=== PATIENT | female | born 1975 | race Caucasian/White ===

== ENCOUNTER 2017-09-06 10:40 | Emergency (ER) | payer MEDICARE ==
[~2017-09-06] VITALS: Ht 149.9 cm; Wt 75.0 kg
[2017-09-06 10:42] VITALS: BP 143/70; PULSE 113; RESP 18; TEMP 100; O2SAT 98
[2017-09-06] MEDS ORDERED: SODIUM CHLOR 0.9% 1000 ML INJ 1,000 ML IV ONE ×2 (11:15→13:15)
[2017-09-06] MEDS ORDERED: ACETAMINOPHEN 325 MG TAB PO ONE (11:15)
[2017-09-06] MEDS ORDERED: TOPI25TA7 PO (11:20)
[2017-09-06] MEDS ORDERED: ALLO300T2 PO (11:20)
[2017-09-06] MEDS ORDERED: ROSU1TAB8 PO (11:20)
[2017-09-06] MEDS ORDERED: COLC1TAB15 PO (11:20)
[2017-09-06] MEDS ORDERED: METO50TA PO (11:20)
[2017-09-06] MEDS ORDERED: NORT10CA PO (11:20)
[2017-09-06] MEDS ORDERED: FENO145T2 PO (11:20)
[2017-09-06] MEDS ORDERED: DIGO0.12 PO (11:20)
[2017-09-06] MEDS ORDERED: RANI150T PO (11:20)
[2017-09-06] MEDS ORDERED: SERT-129 PO (11:20)
[2017-09-06] MEDS ORDERED: CANA300T PO (11:20)
[2017-09-06] MEDS ORDERED: ZOFR4TAB PO (11:20)
[2017-09-06] MEDS ORDERED: NOVOLOGP2 SQ (11:20)
[2017-09-06] MEDS ORDERED: DEXI60CA3 PO (11:20)
[2017-09-06] MEDS ORDERED: SUCR1TAB PO (11:20)
[2017-09-06] MEDS ORDERED: PROM12.54 PO (11:20)
[2017-09-06] MEDS ORDERED: LOSA25TA PO (11:20)
[2017-09-06] MEDS ORDERED: METO100T PO (11:20)
[2017-09-06 11:23] VITALS: O2SAT 97
--- NOTE | 2017-09-06 11:23 | PD ---
HPI Chief Complaint: Fever Time Seen by Provider: 11:02 Travel History International Travel<30 days: No Contact w/Intl Traveler<30days: No Traveled to known affect area: No History of Present Illness HPI 42 year old female presents to the emergency department for evaluation of fever that started on Friday, 3 days ago. Patient reports significant medical history with diabetes with insulin pump, pacemaker/AICD, polycystic kidney disease, frequent UTIs, CVA, hypertension, GERD, hyperlipidemia, seizures. Patient states that her fevers have been up to 103. She last took Tylenol at 7 AM this morning. Patient reports right lower back pain. She also reports shortness of breath and worsening pain with taking a deep breath. She states that she had an esophageal dilation with endoscopy done on Friday before fever started. She denies any chest pain. She denies any abdominal pain. She reports nausea, but no vomiting. She states she did have diarrhea, but this is resolved. She had 1 episode yesterday. No blood in her stool. Patient denies any sore throat or ear pain. No cough or congestion. Severity is moderate. No exacerbating or alleviating factors. No radiation of pain. Pain is achy/ sharp. PFSH Past Medical History ?: Not Social History Alcohol Use: Yes Tobacco Use: Yes Substance Use: No Allergies-Medications (Allergen,Severity, Reaction): Coded Allergies: insulin glargine (Verified Allergy, Severe, 09/06/17) lisinopril (Verified Allergy, Severe, 09/06/17) naproxen (Verified Allergy, Severe, 09/06/17) Reported Meds & Prescriptions Reported Meds & Active Scripts Active Reported Zofran (Ondansetron HCl) 4 Mg Tab 4 Mg PO Q12HR PRN Losartan (Losartan Potassium) 25 Mg Tab 25 Mg PO DAILY Topiramate 25 Mg Tab 25 Mg PO DAILY Sertraline (Sertraline HCl) 100 Mg Tab 150 Mg PO DAILY Rosuvastatin (Rosuvastatin Calcium) 20 Mg Tab 20 Mg PO MWF Ranitidine (Ranitidine HCl) 150 Mg Tab 150 Mg PO BID Promethazine (Promethazine HCl) 12.5 Mg Tab 25 Mg PO Q4H PRN Nortriptyline (Nortriptyline HCl) 10 Mg Cap 10 Mg PO HS Metoprolol Tartrate 100 Mg Tab 100 Mg PO DAILY Metoprolol Tartrate 50 Mg Tab 50 Mg PO DAILY Invokana (Canagliflozin) 300 Mg Tab 300 Mg PO DAILY Take before 1st meal of day. Dexilant (Dexlansoprazole) 60 Mg bp 60 Mg PO Fenofibrate 145 Mg Tab 145 Mg PO DAILY Colchicine 0.6 Mg Tab 0.6 Mg PO PRN Digoxin 0.125 Mg Tab 0.125 Mg PO DAILY Sucralfate 1 Gram Tab 1 Gm PO QID on empty stomach Allopurinol 300 Mg Tab 300 Mg PO DAILY Novolog Inj (Insulin Aspart) 1,000 Unit/10 Ml Vial 0 SQ DIRECTED Sliding Scale as directed. Review of Systems Except as stated in HPI: all other systems reviewed are Neg Physical Exam Narrative GENERAL: Well-nourished, well-developed female patient, ambulatory. Temp of 100.0. SKIN: Focused skin assessment warm/dry. HEAD: Normocephalic. Atraumatic. ENT: Mucosa pink and moist. No erythema or exudates. No uvular edema. No uvular , palatal, or tonsillar deviation. Airway patent. Nasal turbinates appear normal without nasal blood, purulent drainage or septal hematoma. Bilateral tympanic membranes are clear without erythema or perforation. EYES: No scleral icterus. No injection or drainage. NECK: Supple, trachea midline. No JVD or lymphadenopathy. CARDIOVASCULAR: Regular rhythm without murmurs, gallops, or rubs. Patient is slightly tachycardic with HR 113. RESPIRATORY: Breath sounds equal bilaterally. No accessory muscle use. Lungs sounds are clear to auscultation. GASTROINTESTINAL: Abdomen soft, non-tender, nondistended. MUSCULOSKELETAL: No cyanosis, or edema. BACK: Nontender without obvious deformity. No CVA tenderness. Patient has tenderness over right lower back. Data Data Last Documented VS Vital Signs Date Time Temp Pulse Resp B/P (MAP) Pulse Ox O2 Delivery O2 Flow Rate FiO2 09/06/17 11:28 97 Nasal Cannula 2.00 09/06/17 11:23 09/06/17 10:42 100.0 113 18 Orders Orders Electrocardiogram (09/06/17 ) Sepsis Workup Initiated (09/06/17 ) Electrocardiogram (09/06/17 11:12) Complete Blood Count With Diff (09/06/17 11:12) Comprehensive Metabolic Panel (09/06/17 11:12) Prothrombin Time / Inr (Pt) (09/06/17 11:12) Act Partial Throm Time (Ptt) (09/06/17 11:12) Lactic Acid Sepsis Protocol (09/06/17 11:12) Magnesium (Mg) (09/06/17 11:12) Lipase (09/06/17 11:12) Ckmb (Isoenzyme) Profile (09/06/17 11:12) Troponin I (09/06/17 11:12) Urinalysis - C+S If Indicated (09/06/17 11:12) Influenzae A/B Antigen (09/06/17 11:12) Blood Culture (09/06/17 11:12) Chest, Single Ap (09/06/17 11:12) Blood Glucose (09/06/17 11:12) Ecg Monitoring (09/06/17 11:12) Iv Access Insert/Monitor (09/06/17 11:12) Oximetry (09/06/17 11:12) Oxygen Administration (09/06/17 11:12) Ct Abd/Pel W Iv Contrast(Rout) (09/06/17 11:12) Ct Thorax/ Chest W Iv Contrast (09/06/17 ) Ed Urine Pregnancytest Poc (09/06/17 11:12) Sodium Chlor 0.9% 1000 Ml Inj (Ns 1000 M (09/06/17 11:15) Acetaminophen (Tylenol) (09/06/17 11:15) Morphine Inj (Morphine Inj) (09/06/17 11:30) Ondansetron Inj (Zofran Inj) (09/06/17 11:30) Urine Culture (09/06/17 11:38) Iohexol 350 Inj (Omnipaque 350 Inj) (09/06/17 13:02) Ceftriaxone Inj (Rocephin Inj) (09/06/17 13:15) Sodium Chlor 0.9% 1000 Ml Inj (Ns 1000 M (09/06/17 13:15) Potassium Chloride (Kcl) (09/06/17 13:30) Labs Laboratory Tests Test 09/06/17 11:30 09/06/17 11:38 Lactic Acid Level 1.5 mmol/L White Blood Count 14.8 TH/MM3 Red Blood Count 4.03 MIL/MM3 Hemoglobin 12.1 GM/DL Hematocrit 35.2 % Mean Corpuscular Volume 87.5 FL Mean Corpuscular Hemoglobin 30.0 PG Mean Corpuscular Hemoglobin Concent 34.3 % Red Cell Distribution Width 12.8 % Platelet Count 168 TH/MM3 Mean Platelet Volume 7.4 FL Neutrophils (%) (Auto) 77.8 % Lymphocytes (%) (Auto) 10.8 % Monocytes (%) (Auto) 10.9 % Eosinophils (%) (Auto) 0.3 % Basophils (%) (Auto) 0.2 % Neutrophils # (Auto) 11.5 TH/MM3 Lymphocytes # (Auto) 1.6 TH/MM3 Monocytes # (Auto) 1.6 TH/MM3 Eosinophils # (Auto) 0.0 TH/MM3 Basophils # (Auto) 0.0 TH/MM3 CBC Comment DIFF FINAL Differential Comment Prothrombin Time 11.1 SEC Prothromb Time International Ratio 1.0 RATIO Activated Partial Thromboplast Time 34.7 SEC Urine Color YELLOW Urine Turbidity HAZY Urine pH 6.0 Urine Specific [place] 1.018 Urine Protein 30 mg/dL Urine Glucose (UA) 1000 mg/dL Urine Ketones TRACE mg/dL Urine Occult Blood TRACE Urine Nitrite NEG Urine Bilirubin NEG Urine Urobilinogen LESS THAN 2.0 MG/DL Urine Leukocyte Esterase MOD Urine RBC 0-3 /hpf Urine WBC 100-200 /hpf Urine WBC Clumps MOD Urine Squamous Epithelial Cells 0-5 /hpf Urine Transitional Epithelial Cells 0-5 /hpf Urine Bacteria MANY /hpf Microscopic Urinalysis Comment CULTURE INDICATED Blood Urea Nitrogen 20 MG/DL Creatinine 0.93 MG/DL Random Glucose 148 MG/DL Total Protein 8.8 GM/DL Albumin 3.5 GM/DL Calcium Level 9.2 MG/DL Magnesium Level 2.1 MG/DL Alkaline Phosphatase 69 U/L Aspartate Amino Transf (AST/SGOT) 16 U/L Alanine Aminotransferase (ALT/SGPT) 29 U/L Total Bilirubin 0.7 MG/DL Sodium Level 130 MEQ/L Potassium Level 3.1 MEQ/L Chloride Level 96 MEQ/L Carbon Dioxide Level 21.6 MEQ/L Anion Gap 12 MEQ/L Estimat Glomerular Filtration Rate 66 ML/MIN Total Creatine Kinase 27 U/L Troponin I LESS THAN 0.02 NG/ML Lipase 73 U/L MDM Medical Decision Making Medical Screen Exam Complete: Yes Emergency Medical Condition: Yes Medical Record Reviewed: Yes Interpretation(s) Last Impressions Chest X-Ray 09/06/17 1112 Signed Impressions: Service Date/Time: Wednesday, September 06, 2017 11:47 - CONCLUSION: No acute cardiopulmonary disease identified. Jake Bashir MD Abdomen/Pelvis CT 09/06/17 1112 Signed Impressions: Service Date/Time: Wednesday, September 06, 2017 12:22 - CONCLUSION: 1. Hepatosplenomegaly. 2. Hepatic steatosis. 3. Polycystic kidneys with perinephric stranding of the right kidney. This may be related to a ruptured cyst, or pyelonephritis. No obstructing stones or hydronephrosis present. 4. Atherosclerosis. 5. Small hiatal hernia. 6. Bilateral ovarian cysts. 7. Trace pneumobilia which may be related to recent endoscopy. Kolton Prajapati MD Chest CT 09/06/17 0000 Signed Impressions: Service Date/Time: Wednesday, September 06, 2017 12:24 - CONCLUSION: 1. Polycystic kidneys. 2. A small amount of pneumobilia is identified. 3. Mild prominence of the chay retrieve in this patient who is status post cholecystectomy. 4. The lungs are clear. 5. Splenomegaly and hepatic steatosis. Kolton Prajapati MD Differential Diagnosis Influenza versus viral syndrome versus UTI versus pyelonephritis versus esophageal perforation Narrative Course 42-year-old female presents to the emergency department for evaluation of fever since Friday with right lower back pain or shortness of breath. She does report esophageal dilation an endoscopy done on Friday. EKG shows sinus tachycardia, heart rate 109. CBC, CMP, lipase, magnesium, CK, troponin, Lactic acid, PTT, PT/INR, UA, blood cultures 2 are ordered and pending. Patient is given normal saline 1 L IV bolus, Tylenol 650 mg by mouth. Chest x-ray is ordered and pending. CT abdomen/pelvis and CT of thorax/chest with IV contrast are ordered and pending. CBC shows leukocytosis of 14.8. CMP shows slight hyponatremia of 130, hypokalemia of 3.1, glucose 148. Lipase is 73. Magnesium is 2.1. CK is 27. Troponin is less than 0.02. Lactic acid is 1.5. Coags show no acute abnormality. UA shows moderate leukocyte esterase, 100-200 WBC, moderate WBC clumps. UPT is negative. Chest x-ray shows no acute disease. CT chest shows polycystic kidneys; A small amount of pneumobilia is identified; Mild prominence of the chay retrieve in this patient who is status post cholecystectomy; The lungs are clear; Splenomegaly and hepatic steatosis. CT abdomen/pelvis Hepatosplenomegaly; Hepatic steatosis; Polycystic kidneys with perinephric stranding of the right kidney. This may be related to a ruptured cyst, or pyelonephritis. No obstructing stones or hydronephrosis present; Atherosclerosis; Small hiatal hernia; Bilateral ovarian cysts; Trace pneumobilia which may be related to recent endoscopy. Patient is given Rocephin 1 g IV, second liter normal saline IV bolus. Patient' s heart rate is now mid-nineties. I discussed admission versus antibiotics for home. The patient states that she would like to try to go home with antibiotics. She does not want to be admitted at this time. I agree that this is reasonable. The patient will be discharged with a prescription for short- term Lortab for pain, ciprofloxacin. She is to return here immediately for any worsening symptoms. She verbalizes agreement and understanding. The patient was discharged in stable condition with instructions, including return instructions and follow up instructions. Diagnosis Primary Impression: Pyelonephritis Referrals: Primary Care Physician 2 days Patient Instructions: General Instructions, Urinary Tract Infection in Women ( ED) Departure Forms: Tests/Procedures, Work Release Enter return to work date: Sep 09, 2017 Additional Instructions: Take antibiotic as directed until gone. Take Lortab as directed as needed for pain. Caution this can make you drowsy so do not drive after taking. Follow-up with your primary care physician. Return to the emergency department for any acute worsening of symptoms. Med/Other Pt SpecificInfo: Prescription(s) given Scripts Hydrocodone-Acetaminophen ([place]) 5 Mg-325 Mg Tab 1 TAB PO Q6H Y for PAIN, #12 TAB 0 Refills Prov: Sammie Shah 09/06/17 Ciprofloxacin (Cipro) 500 Mg Tab 500 MG PO BID for Infection for 14 Days, #28 TAB 0 Refills Prov: Sammie Shah 09/06/17 Disposition: 01 DISCHARGE HOME Condition: Stable Sammie Shah Sep 06, 2017 11:23
[2017-09-06] MEDS ORDERED: ONDANSETRON HCL 4 MG/2 ML VIAL IV PUSH ONE (11:30)
[2017-09-06] MEDS ORDERED: MORPHINE SULFATE 4 MG/ML INJ IV PUSH ONE (11:30)
[2017-09-06 11:58] LABS: AUTOMATED NEUTROPHIL # 11.5 TH/MM3 (1.8-7.7); BASOPHIL % 0.2 % (0.0-2.0); EOSINOPHIL % 0.3 % (0.0-4.0); HEMATOCRIT 35.2 % (35.0-46.0); HEMO FLAGS DIFF FINAL; LYMPH % 10.8 % (9.0-44.0); LYMPHOCYTE # 1.6 TH/MM3 (1.0-4.8); MEAN CELL VOLUME 87.5 FL (80.0-100.0); MEAN CORPUSCULAR HGB CONC 34.3 % (32.0-36.0); MONO % 10.9 % (0.0-8.0); NEUT % 77.8 % (16.0-70.0); PLATELET COUNT 168 TH/MM3 (150-450); RED BLOOD COUNT 4.03 MIL/MM3 (4.00-5.30); RED CELL DISTRIBUTION WIDTH 12.8 % (11.6-17.2); WHITE BLOOD COUNT 14.8 TH/MM3 (4.0-11.0)
[2017-09-06 12:06] LABS: APTT (PATIENT) 34.7 SEC (24.3-30.1); BLOOD, URINE TRACE (NEG); GLUCOSE,URINE 1000 mg/dL (NEG); KETONE, URINE TRACE mg/dL (NEG); NITRITE,URINE NEG (NEG); PROTHROMBIN TIME - PATIENT 11.1 SEC (9.8-11.6); URINE COLOR YELLOW (YELLW/STRAW)
[2017-09-06 12:16] LABS: BACTERIA, URINE MANY /hpf; RBC, URINE 0-3 /hpf (0-3); SQUAMOUS EPITHELIAL CELL URINE 0-5 /hpf (0-5); TRANSITIONAL EPI CELLS, URINE 0-5 /hpf; WBC, URINE 100-200 /hpf (0-5)
--- NOTE | 2017-09-06 12:16 | RADRPT ---
EXAM DATE/TIME: 09/06/2017 11:47 [facility] COMPARISON: No previous studies available for comparison. INDICATIONS : Pain in lower back and right side with fever and shortness of breath. MEDICAL HISTORY : Congestive heart failure. Cardiomyopathy. Atrial fibrillation. SURGICAL HISTORY : Pacemaker. Cardiac catheterization. ENCOUNTER: Initial ACUITY: 1 day PAIN SCORE: 6/10 LOCATION: Right lower chest FINDINGS: Single AP view of the chest. AICD in place. The lungs are clear. Cardiomediastinal silhouette within normal limits. No evidence of pleural effusion or pneumothorax. CONCLUSION: No acute cardiopulmonary disease identified. Jake Bashir MD on September 06, 2017 at 12:14 Board Certified Radiologist. This report was verified electronically.
[2017-09-06 12:18] LABS: COMMENT (UR) CULTURE INDICATED; CULTURE IF INDICATED CULTURE INDICATED
[2017-09-06 12:19] LABS: ALT (GPT) 29 U/L (10-53); ANION GAP 12 MEQ/L (5-15); AST (GOT) 16 U/L (15-37); BICARBONATE 21.6 MEQ/L (21.0-32.0); BLOOD UREA NITROGEN 20 MG/DL (7-18); CHLORIDE 96 MEQ/L (98-107); GLOMERULAR FILTRATION RATE 66 ML/MIN (>89); MAGNESIUM 2.1 MG/DL (1.5-2.5); POTASSIUM 3.1 MEQ/L (3.5-5.1); SODIUM (NA) 130 MEQ/L (136-145)
[2017-09-06 12:26] LABS: ALKALINE PHOSPHATASE 69 U/L (45-117); TOTAL BILIRUBIN ADULT 0.7 MG/DL (0.2-1.0)
[2017-09-06 12:39] LABS: CREATINE KINASE 27 U/L (26-192)
[2017-09-06] MEDS ORDERED: IOHEXOL 350 MG/ML 10 ML VIAL (for RAD DIAG) IVCONTRAST ONE (13:02)
--- NOTE | 2017-09-06 13:05 | RADRPT ---
EXAM DATE/TIME: 09/06/2017 12:24 [facility] COMPARISON: CT ABDOMEN & PELVIS W CONTRAST, September 06, 2017, 12:22. INDICATIONS : Chest discomfort and fever. IV CONTRAST: 100 cc Omnipaque 350 (iohexol) IV ; Cumulative dose for multiple exams. RADIATION DOSE: 9.96 CTDIvol (mGy) ; Combined studies - Thorax/Abdomen/Pelvis MEDICAL HISTORY : Cardiovascular disease. SURGICAL HISTORY : None. ENCOUNTER: Initial ACUITY: 1 day PAIN SCALE: 10/10 LOCATION: Bilateral chest TECHNIQUE: Volumetric scanning of the chest was performed. Using automated exposure control and adjustment of t he mA and/or kV according to patient size, radiation dose was kept as low as reasonably achievable to obtain optimal diagnostic quality images. DICOM format image data is available electronically for review and comparison. Follow-up recommendations for detected pulmonary nodules are based at a minimum on nodule size and pa tient risk factors according to Fleischner Society Guidelines. FINDINGS: There are innumerable cysts within the visualized bilateral kidneys. There is pneumobilia identified in the intrahepatic biliary tree in this patient is status post cholecystectomy. The common bile duct is prominent up to 13 mm. Splenomegaly is noted up to 16 cm in AP dimension. Mild hepatic steatosis. There is no adenopathy. Multiple bilateral fire or nodules are noted. Osseous structures are intact. The lungs are clear. CONCLUSION: 1. Polycystic kidneys. 2. A small amount of pneumobilia is identified. 3. Mild prominence of the chay retrieve in this patient who is status post cholecystectomy. 4. The lungs are clear. 5. Splenomegaly and hepatic steatosis. Kolton Prajapati MD on September 06, 2017 at 13:02 Board Certified Radiologist. This report was verified electronically.
--- NOTE | 2017-09-06 13:09 | RADRPT ---
EXAM DATE/TIME: 09/06/2017 12:22 [facility] COMPARISON: CT THORAX W CONTRAST, September 06, 2017, 12:24. INDICATIONS : Right flank pain. IV CONTRAST: 100 cc Omnipaque 350 (iohexol) IV ; Cumulative dose for multiple exams. ORAL CONTRAST: No oral contrast ingested. RADIATION DOSE: 9.96 CTDIvol (mGy) ; Combined studies - Thorax/Abdomen/Pelvis MEDICAL HISTORY : Cardiovascular disease. SURGICAL HISTORY : None. ENCOUNTER: Initial ACUITY: 1 day PAIN SCALE: 10/10 LOCATION: Bilateral abdomen. TECHNIQUE: Volumetric scanning of the abdomen and pelvis was performed. Using automated exposure control and ad justment of the mA and/or kV according to patient size, radiation dose was kept as low as reasonably achievable to obtain optimal diagnostic quality images. DICOM format image data is available electro nically for review and comparison. FINDINGS: No pleural or pericardial effusions are seen. There is a small calcification at the dome of the liver on image 8 measuring 7.5 mm. Hepatic steatosis is identified and hepatomegaly as well as splenomegal y at 16 cm in AP dimension. There is a small amount of pneumobilia in the intrahepatic biliary tree i n this patient with history of recent endoscopy. Common bile duct measures up to 14 mm in AP dimensio n in this patient who is status post cholecystectomy. There is no pancreatic ductal dilatation. There is a small hiatal hernia. Innumerable bilateral renal cysts are identified. There is cortical thinni ng. The largest cyst on the left is at the middle pole measuring 4.1 cm. The largest on the right is at the midpole anteriorly measuring 3.4 cm. Atherosclerotic calcification of the aorta and iliac vess els. The patient is status post hysterectomy. There is a small cyst suspected at the left ovary measu ring 2.4 cm. Right adnexal cyst measuring 6.1 cm. There is no evidence of bowel obstruction or free f luid. The appendix is normal. There is no adenopathy or aneurysm. The osseous structures are intact. There is mild perinephritic stranding of the right kidney. This is best seen on axial image 32. No ob structing stones are seen. No hydronephrosis. Lung bases are clear. The liver is enlarged up to 26 cm . CONCLUSION: 1. Hepatosplenomegaly. 2. Hepatic steatosis. 3. Polycystic kidneys with perinephric stranding of the right kidney. This may be related to a ruptur ed cyst, or pyelonephritis. No obstructing stones or hydronephrosis present. 4. Atherosclerosis. 5. Small hiatal hernia. 6. Bilateral ovarian cysts. 7. Trace pneumobilia which may be related to recent endoscopy. Kolton Prajapati MD on September 06, 2017 at 13:04 Board Certified Radiologist. This report was verified electronically.
[2017-09-06] MEDS ORDERED: cefTRIAXone INJ 1,000 MG in SODIUM CHLORIDE 0.9% INJ 100 ML IV ONE (13:15)
[2017-09-06] MEDS ORDERED: CIPR-9 PO (13:27)
[2017-09-06] MEDS ORDERED: NORC5TAB PO ×2 (13:27→13:29)
[2017-09-06] MEDS ORDERED: POTASSIUM CHLORIDE 20 MEQ CONTROLLED RELEASE TAB PO ONE (13:30)
[2017-09-06 14:32] VITALS: BP 138/74; PULSE 98; RESP 18; TEMP 99; O2SAT 97
--- NOTE | 2017-09-06 16:10 | EKG ---
Date Performed: 09/06/2017 Time Performed: 11:14:35 PTAGE: 42 years EKG: SINUS TACHYCARDIA POSSIBLE LEFT ATRIAL ENLARGEMENT MODERATE INTRAVENTRICULAR CONDUCTION DEL AY Nonspecific T wave changes ABNORMAL RHYTHM ECG NO PREVIOUS TRACING DOCTOR: Meek Martinez Interpretating Date/Time 09/06/2017 16:09:15
== END 2017-09-06 14:34 | disposition home or self-care (01) ==
LOC: NEPE 10:40
DX: N12 Tubulo-interstitial nephritis, not specified as acute or chronic (principal); B96.20 Unspecified Escherichia coli [E. coli] as the cause of diseases classified elsewhere; R06.02 Shortness of breath; R11.0 Nausea; E87.1 Hypo-osmolality and hyponatremia; E87.6 Hypokalemia; R94.31 Abnormal electrocardiogram [ECG] [EKG]; E11.9 Type 2 diabetes mellitus without complications; I10 Essential (primary) hypertension; E78.5 Hyperlipidemia, unspecified; Z72.0 Tobacco use; Z79.4 Long term (current) use of insulin; Z95.810 Presence of automatic (implantable) cardiac defibrillator; Z87.448 Personal history of other diseases of urinary system; Z86.79 Personal history of other diseases of the circulatory system; Z87.19 Personal history of other diseases of the digestive system; Z86.69 Personal history of other diseases of the nervous system and sense organs
CPT/HCPCS: 71010; 71260; 74177; 80053; 81001; 82550; 83605; 83690; 83735; 84484; 84703; 85025; 85610; 85730; 87040; 87077; 87086; 87186; 87804; 93005; 96361; 96365; 96375; 99285; J0696; J2270; J2405; J7030; Q9967

== ENCOUNTER 2017-09-09 12:48 | Emergency (ER) | payer MEDICARE ==
[~2017-09-09] VITALS: Ht 149.9 cm; Wt 75.5 kg
[~2017-09-09 12:48] MED LIST: ALLO300T2 PO; CANA300T PO; CIPR-9 PO; COLC1TAB15 PO; DEXI60CA3 PO; DIGO0.12 PO; FENO145T2 PO; LOSA25TA PO; METO100T PO; METO50TA PO; NORC5TAB PO; NORT10CA PO; NOVOLOGP2 SQ; PROM12.54 PO; RANI150T PO; ROSU1TAB8 PO; SERT-129 PO; SUCR1TAB PO; TOPI25TA7 PO; ZOFR4TAB PO
[2017-09-09 12:50] VITALS: BP 159/79; PULSE 106; RESP 20; TEMP 99.5; O2SAT 100
--- NOTE | 2017-09-09 13:42 | PD ---
HPI Chief Complaint: Medical Clearance Time Seen by Provider: 13:25 Travel History International Travel<30 days: No Contact w/Intl Traveler<30days: No Traveled to known affect area: No History of Present Illness HPI Is a chronically ill 42-year-old woman who presents to the emergency Department ongoing fevers right sided flank pain, feeling poorly for the past several days. She has extensive medical history including polycystic kidney disease, cardiomyopathy with an AICD, A. fib, diabetes, CVA, hyponatremia, and seizures. She states she's been in the hospital [place] She seemed a couple days ago diagnosed with pyelonephritis based on significant pyuria, as well as CT imaging to suggest pyelonephritis. She should with Cipro. Micro-is sensitive to Cipro however states she is not improving and continues to have fevers up to 103. History Past Medical History Narrative Medical Polycystic kidney disease Card myopathy, status post AICD placement A. fib Diabetes CVA Hyperlipidemia Seizure Tetanus Vaccination: < 5 Years Social History Alcohol Use: Yes Tobacco Use: Yes Allergies-Medications (Allergen,Severity, Reaction): Coded Allergies: insulin glargine (Verified Allergy, Severe, 09/09/17) lisinopril (Verified Allergy, Severe, 09/09/17) naproxen (Verified Allergy, Severe, 09/09/17) Reported Meds & Prescriptions Reported Meds & Active Scripts Active [place] (Hydrocodone-Acetaminophen) 5 Mg-325 Mg Tab 1 Tab PO Q6H PRN Cipro (Ciprofloxacin HCl) 500 Mg Tab 500 Mg PO BID 14 Days Reported Zofran (Ondansetron HCl) 4 Mg Tab 4 Mg PO Q12HR PRN Losartan (Losartan Potassium) 25 Mg Tab 25 Mg PO DAILY Topiramate 25 Mg Tab 25 Mg PO DAILY Sertraline (Sertraline HCl) 100 Mg Tab 150 Mg PO DAILY Rosuvastatin (Rosuvastatin Calcium) 20 Mg Tab 20 Mg PO MWF Ranitidine (Ranitidine HCl) 150 Mg Tab 150 Mg PO BID Promethazine (Promethazine HCl) 12.5 Mg Tab 25 Mg PO Q4H PRN Nortriptyline (Nortriptyline HCl) 10 Mg Cap 10 Mg PO HS Metoprolol Tartrate 100 Mg Tab 100 Mg PO DAILY Metoprolol Tartrate 50 Mg Tab 50 Mg PO DAILY Invokana (Canagliflozin) 300 Mg Tab 300 Mg PO DAILY Take before 1st meal of day. Dexilant (Dexlansoprazole) 60 Mg bp 60 Mg PO Fenofibrate 145 Mg Tab 145 Mg PO DAILY Colchicine 0.6 Mg Tab 0.6 Mg PO PRN Digoxin 0.125 Mg Tab 0.125 Mg PO DAILY Sucralfate 1 Gram Tab 1 Gm PO QID on empty stomach Allopurinol 300 Mg Tab 300 Mg PO DAILY Novolog Inj (Insulin Aspart) 1,000 Unit/10 Ml Vial 0 SQ DIRECTED Sliding Scale as directed. Review of Systems Except as stated in HPI: all other systems reviewed are Neg Physical Exam Narrative GENERAL: Chronically ill-appearing 42-year-old woman, no acute distress. SKIN: Focused skin assessment warm/dry. HEAD: Atraumatic. Normocephalic. EYES: Pupils equal and round. No scleral icterus. No injection or drainage. ENT: No nasal bleeding or discharge. Mucous membranes pink and moist. NECK: Trachea midline. No JVD. CARDIOVASCULAR: Regular rate and rhythm. No murmur appreciated. RESPIRATORY: No accessory muscle use. Clear to auscultation. Breath sounds equal bilaterally. GASTROINTESTINAL: Abdomen is obese and soft. No significant tenderness. Right sided CVA tenderness to percussion is noted. MUSCULOSKELETAL: No obvious deformities. No clubbing. No cyanosis. No edema. NEUROLOGICAL: Awake and alert. No obvious cranial nerve deficits. Motor grossly within normal limits. Normal speech. PSYCHIATRIC: Appropriate mood and affect; insight and judgment normal. Data Data Last Documented VS Vital Signs Date Time Temp Pulse Resp B/P (MAP) Pulse Ox O2 Delivery O2 Flow Rate FiO2 09/09/17 12:50 99.5 106 20 159/79 (105) 100 Room Air Orders Orders Complete Blood Count With Diff (09/09/17 13:38) Comprehensive Metabolic Panel (09/09/17 13:38) Urinalysis - C+S If Indicated (09/09/17 13:38) Iv Access Insert/Monitor (09/09/17 13:38) MDM Medical Decision Making Medical Screen Exam Complete: Yes Emergency Medical Condition: Yes Differential Diagnosis Pyelonephritis, pancreatitis, chronic pain, other Narrative Course Medical decision making Is a 42-year-old woman presents emergent department with appears to be ongoing pollen nephritis symptoms, not improving despite antibiotic therapy. Her culture grew Escherichia coli should be sensitive to Cipro but clinically she does not appear to be improving. She is somewhat somatically preoccupied has a chronic history of multiple medical problems. Nonetheless subjectively she has pyuria and pyelonephritis on CT imaging and does not appear to be improving. We 'll recheck labs, urine, likely admission for IV antibiotics. Clovis Dickinson MD Sep 09, 2017 13:42
--- NOTE | 2017-09-09 14:10 | PD ---
Physical Exam Date Seen by Provider: Sep 09, 2017 Time Seen by Provider: 14:09 Narrative 42-year-old female recently diagnosed with pyelonephritis, and treated with ciprofloxacin on an outpatient basis returned ongoing symptoms and fever. Patient previously seen by Dr. way in the triage, and labs were ordered. Patient may be admitted pending labs for failure of outpatient therapy. Data Data Last Documented VS Vital Signs Date Time Temp Pulse Resp B/P (MAP) Pulse Ox O2 Delivery O2 Flow Rate FiO2 09/09/17 13:44 16 09/09/17 12:50 99.5 106 159/79 (105) 100 Room Air Orders Orders Complete Blood Count With Diff (09/09/17 13:38) Comprehensive Metabolic Panel (09/09/17 13:38) Urinalysis - C+S If Indicated (09/09/17 13:38) Iv Access Insert/Monitor (09/09/17 13:38) Oxycodone-Acetamin 5-325 Mg (Percocet (09/09/17 15:15) Labs Laboratory Tests Test 09/09/17 14:00 White Blood Count 13.2 TH/MM3 Red Blood Count 3.65 MIL/MM3 Hemoglobin 10.9 GM/DL Hematocrit 32.2 % Mean Corpuscular Volume 88.3 FL Mean Corpuscular Hemoglobin 29.8 PG Mean Corpuscular Hemoglobin Concent 33.7 % Red Cell Distribution Width 13.0 % Platelet Count 317 TH/MM3 Mean Platelet Volume 7.2 FL Neutrophils (%) (Auto) 78.0 % Lymphocytes (%) (Auto) 14.6 % Monocytes (%) (Auto) 5.7 % Eosinophils (%) (Auto) 1.1 % Basophils (%) (Auto) 0.6 % Neutrophils # (Auto) 10.3 TH/MM3 Lymphocytes # (Auto) 1.9 TH/MM3 Monocytes # (Auto) 0.8 TH/MM3 Eosinophils # (Auto) 0.1 TH/MM3 Basophils # (Auto) 0.1 TH/MM3 CBC Comment AUTO DIFF Differential Total Cells Counted 100 Neutrophils % (Manual) 71 % Band Neutrophils % 3 % Lymphocytes % 16 % Monocytes % 5 % Eosinophils % 1 % Neutrophils # (Manual) 10.3 TH/MM3 Metamyelocytes 2 % Myelocytes 2 % Differential Comment FINAL DIFF MANUAL Platelet Estimate NORMAL Platelet Morphology Comment NORMAL Red Cell Morphology Comment NORMAL Urine Color YELLOW Urine Turbidity CLEAR Urine pH 6.5 Urine Specific [place] 1.018 Urine Protein NEG mg/dL Urine Glucose (UA) 1000 mg/dL Urine Ketones TRACE mg/dL Urine Occult Blood NEG Urine Nitrite NEG Urine Bilirubin NEG Urine Urobilinogen LESS THAN 2.0 MG/DL Urine Leukocyte Esterase NEG Urine RBC 1 /hpf Urine WBC 2 /hpf Urine Squamous Epithelial Cells 2 /hpf Microscopic Urinalysis Comment CULT NOT INDICATED Blood Urea Nitrogen 16 MG/DL Creatinine 0.65 MG/DL Random Glucose 180 MG/DL Total Protein 8.6 GM/DL Albumin 2.9 GM/DL Calcium Level 9.8 MG/DL Alkaline Phosphatase 95 U/L Aspartate Amino Transf (AST/SGOT) 32 U/L Alanine Aminotransferase (ALT/SGPT) 64 U/L Total Bilirubin 0.3 MG/DL Sodium Level 136 MEQ/L Potassium Level 3.2 MEQ/L Chloride Level 101 MEQ/L Carbon Dioxide Level 24.8 MEQ/L Anion Gap 10 MEQ/L Estimat Glomerular Filtration Rate 99 ML/MIN [facility] Medical Record Reviewed: Yes Supervised Visit with NEGRA: Yes Differential Diagnosis Urinary tract infection. Pyelonephritis. Failure to outpatient therapy. Narrative Course CBC shows an improving leukocytosis. CMP is unremarkable for no acute findings. Urinalysis shows improved UA without obvious signs of ongoing urinary tract infection. Patient discussed with Dr. Dickinson felt the patient was stable for discharge on continued antibiotics and pain meds as previously ordered. Diagnosis Primary Impression: Pyelonephritis Referrals: Primary Care Physician Patient Instructions: General Instructions Additional Instruction: CBC shows an improving leukocytosis. CMP is unremarkable for no acute findings. Urinalysis shows improved UA without obvious signs of ongoing urinary tract infection. Patient discussed with Dr. Dickinson felt the patient was stable for discharge on continued antibiotics and pain meds as previously ordered. Med/Other Pt SpecificInfo: No Change to Meds Disposition: 01 DISCHARGE HOME Condition: Stable Shelton Couch Sep 09, 2017 14:10
[2017-09-09 14:13] LABS: AUTOMATED NEUTROPHIL # 10.3 TH/MM3 (1.8-7.7); BASOPHIL # 0.1 TH/MM3 (0-0.2); BASOPHIL % 0.6 % (0.0-2.0); EOSINOPHIL # 0.1 TH/MM3 (0-0.4); EOSINOPHIL % 1.1 % (0.0-4.0); HEMATOCRIT 32.2 % (35.0-46.0); LYMPH % 14.6 % (9.0-44.0); LYMPHOCYTE # 1.9 TH/MM3 (1.0-4.8); MEAN CELL VOLUME 88.3 FL (80.0-100.0); MEAN CORPUSCULAR HEMOGLOBIN 29.8 PG (27.0-34.0); MEAN CORPUSCULAR HGB CONC 33.7 % (32.0-36.0); MONO % 5.7 % (0.0-8.0); PLATELET COUNT 317 TH/MM3 (150-450); RED BLOOD COUNT 3.65 MIL/MM3 (4.00-5.30); WHITE BLOOD COUNT 13.2 TH/MM3 (4.0-11.0)
[2017-09-09 14:15] LABS: BLOOD, URINE NEG (NEG); GLUCOSE,URINE 1000 mg/dL (NEG); KETONE, URINE TRACE mg/dL (NEG); NITRITE,URINE NEG (NEG); PH, URINE 6.5 (5.0-8.5); SQUAMOUS EPITHELIAL CELL URINE 2 /hpf (0-5); URINE COLOR YELLOW (YELLW/STRAW)
[2017-09-09 14:17] LABS: COMMENT (UR) CULT NOT INDICATED; CULTURE IF INDICATED CULT NOT INDICATED
[2017-09-09 14:18] LABS: HEMO FLAGS AUTO DIFF
[2017-09-09 14:45] LABS: BANDS 3 % (0-6); EOSINOPHILS 1 % (0-4); METAMYELOCYTES 2 % (0-1); MYELOCYTES 2 % (0-0); NEUTROPHIL # MANUAL DIFF 10.3 TH/MM3 (1.8-7.7); PLATELET ESTIMATE SMEAR NORMAL (NORMAL); PLATELET MORPHOLOGY NORMAL (NORMAL); POLYS (SEG NEUTROPHILS) 71 % (16-70); SCAN/DIFF FINAL DIFF MANUAL; WBC DIFF SAMPLE 100
[2017-09-09 14:47] LABS: ALKALINE PHOSPHATASE 95 U/L (45-117); ALT (GPT) 64 U/L (10-53); ANION GAP 10 MEQ/L (5-15); AST (GOT) 32 U/L (15-37); BICARBONATE 24.8 MEQ/L (21.0-32.0); BLOOD UREA NITROGEN 16 MG/DL (7-18); CHLORIDE 101 MEQ/L (98-107); GLOMERULAR FILTRATION RATE 99 ML/MIN (>89); POTASSIUM 3.2 MEQ/L (3.5-5.1); SODIUM (NA) 136 MEQ/L (136-145); TOTAL BILIRUBIN ADULT 0.3 MG/DL (0.2-1.0)
[2017-09-09] MEDS ORDERED: oxyCODONE/ACETAMINOPHEN 5 MG/325 MG TAB PO ONE (15:15)
== END 2017-09-09 16:16 | disposition home or self-care (01) ==
LOC: NEPD 12:48
DX: N12 Tubulo-interstitial nephritis, not specified as acute or chronic (principal); D72.829 Elevated white blood cell count, unspecified; Q61.3 Polycystic kidney, unspecified; I42.9 Cardiomyopathy, unspecified; I48.91 Unspecified atrial fibrillation; E11.9 Type 2 diabetes mellitus without complications; R56.9 Unspecified convulsions; E78.5 Hyperlipidemia, unspecified; Z86.73 Personal history of transient ischemic attack (TIA), and cerebral infarction without residual deficits
CPT/HCPCS: 80053; 81001; 85007; 85027; 99283

== ENCOUNTER 2017-10-05 13:43 | Emergency (ER) | payer MEDICARE ==
[~2017-10-05] VITALS: Ht 149.9 cm; Wt 73.0 kg
[2017-10-05 13:46] VITALS: BP 119/56; PULSE 79; RESP 18; TEMP 98.7; O2SAT 100
--- NOTE | 2017-10-05 15:40 | PD ---
HPI Chief Complaint: Skin Problem Time Seen by Provider: 15:29 Travel History International Travel<30 days: No Contact w/Intl Traveler<30days: No Traveled to known affect area: No History of Present Illness HPI 42-year-old female presents to the emergency department for evaluation of abscess just below her left axilla. Patient states this started 3 days ago. She does have a history of abscesses. Patient denies any fevers or chills. Patient is diabetic with an insulin pump. She states that her/sugar was normal 100s. Patient reports localized pain and tenderness. Pain is aching and sharp , 8/10. No radiation of pain. No associated symptoms. Moderate severity. PFSH Past Medical History Cardiovascular Problems: Yes (2 heart caths) Diabetes: Yes Hypertension: Yes Implanted Vascular Access Dvce: Yes (icd) Respiratory: Yes (2 lt at hs) ?: Not Tubal Ligation: Yes Past Surgical History Cholecystectomy: Yes Hysterectomy: Yes Insulin Pump: Yes Social History Alcohol Use: Yes Tobacco Use: Yes Substance Use: No Allergies-Medications (Allergen,Severity, Reaction): Coded Allergies: insulin glargine (Verified Allergy, Severe, 10/05/17) lisinopril (Verified Allergy, Severe, 10/05/17) naproxen (Verified Allergy, Severe, 10/05/17) Reported Meds & Prescriptions Reported Meds & Active Scripts Active [place] (Hydrocodone-Acetaminophen) 5 Mg-325 Mg Tab 1 Tab PO Q6H PRN Cipro (Ciprofloxacin HCl) 500 Mg Tab 500 Mg PO BID 14 Days Reported Zofran (Ondansetron HCl) 4 Mg Tab 4 Mg PO Q12HR PRN Losartan (Losartan Potassium) 25 Mg Tab 25 Mg PO DAILY Topiramate 25 Mg Tab 25 Mg PO DAILY Sertraline (Sertraline HCl) 100 Mg Tab 150 Mg PO DAILY Rosuvastatin (Rosuvastatin Calcium) 20 Mg Tab 20 Mg PO MWF Ranitidine (Ranitidine HCl) 150 Mg Tab 150 Mg PO BID Promethazine (Promethazine HCl) 12.5 Mg Tab 25 Mg PO Q4H PRN Nortriptyline (Nortriptyline HCl) 10 Mg Cap 10 Mg PO HS Metoprolol Tartrate 100 Mg Tab 100 Mg PO DAILY Metoprolol Tartrate 50 Mg Tab 50 Mg PO DAILY Invokana (Canagliflozin) 300 Mg Tab 300 Mg PO DAILY Take before 1st meal of day. Dexilant (Dexlansoprazole) 60 Mg bp 60 Mg PO Fenofibrate 145 Mg Tab 145 Mg PO DAILY Colchicine 0.6 Mg Tab 0.6 Mg PO PRN Digoxin 0.125 Mg Tab 0.125 Mg PO DAILY Sucralfate 1 Gram Tab 1 Gm PO QID on empty stomach Allopurinol 300 Mg Tab 300 Mg PO DAILY Novolog Inj (Insulin Aspart) 1,000 Unit/10 Ml Vial 0 SQ DIRECTED Sliding Scale as directed. Review of Systems Except as stated in HPI: all other systems reviewed are Neg Physical Exam Narrative GENERAL: Well-nourished, well-developed female patient, ambulatory. Afebrile SKIN: Focused skin assessment warm/dry. Patient has approximately 4 cm abscess with erythema to the area just below left axilla. No current drainage. No lymphangitis. HEAD: Normocephalic. Atraumatic. EYES: No scleral icterus. No injection or drainage. NECK: Supple, trachea midline. No JVD or lymphadenopathy. CARDIOVASCULAR: Regular rate and rhythm without murmurs, gallops, or rubs. RESPIRATORY: Breath sounds equal bilaterally. No accessory muscle use. Lungs sounds are clear to auscultation. GASTROINTESTINAL: Abdomen soft, non-tender, nondistended. MUSCULOSKELETAL: No cyanosis, or edema. BACK: Nontender without obvious deformity. No CVA tenderness. Data Data Last Documented VS Vital Signs Date Time Temp Pulse Resp B/P (MAP) Pulse Ox O2 Delivery O2 Flow Rate FiO2 10/05/17 16:10 18 10/05/17 13:46 98.7 79 119/56 (77) 100 Room Air Orders Orders Blood Glucose (10/05/17 15:36) Wound Culture And Gram Stain (10/05/17 15:36) Acetamin-Hydrocod 325-5 Mg (Stryker 5-325 (10/05/17 15:45) Lidocai-Epi 1%-1:100,000 Inj (Xylocaine- (10/05/17 15:45) Sulfamet-Trimeth Ds 800-160 Mg (Bactrim (10/05/17 16:30) Cephalexin (Keflex) (10/05/17 16:30) MDM Medical Decision Making Medical Screen Exam Complete: Yes Emergency Medical Condition: Yes Medical Record Reviewed: Yes Differential Diagnosis Abscess versus cellulitis versus cyst Narrative Course 42-year-old female presents to the emergency department for evaluation of abscess just below her left axilla that started 3 days ago. Patient gives verbal consent for incision and drainage. Blood glucose is 162. Incision and drainage is completed. Patient is given first dose of Bactrim and Keflex in the emergency department. She will be discharged with a prescription for Bactrim, Keflex, [place]ker. She has appointment with her primary care physician on Friday. I instructed her primary care physician recheck the abscess. She is return here for any acute worsening of symptoms. She verbalizes agreement and understanding. The patient was discharged in stable condition with instructions, including return instructions and follow up instructions. Procedures Procedure Narrative INCISION AND DRAINAGE OF ABSCESS: The area was prepped and was sterilely draped. A subcutaneous wheal of 1% Xylocaine with epinephrine with a total number 8 mL was used to anesthetize the area. The area was properly anesthetized. A number 11 scalpel was used to make a 1 -cm incision across the area of the abscess. Cultures were obtained. The abscess was drained an irrigated with normal saline. Quarter inch iodoform packing was placed in the wound. Sterile dressing applied. Patient advised to have packing removed in two days. Diagnosis Primary Impression: Abscess Referrals: Primary Care Physician 2 days Patient Instructions: Abscess (ED), Abscess Incision and Drainage (GEN), General Instructions, Narcotic given in the ED Additional Instructions: Take antibiotics as directed until gone. Take Stryker as directed as needed for pain. Caution do not drive after taking this. Clean twice daily with soap and water. Follow-up with your primary care physician as scheduled in 2 days for recheck, packing removal. Return to the emergency department for any acute worsening of symptoms. Med/Other Pt SpecificInfo: Prescription(s) given Scripts Hydrocodone-Acetaminophen (Stryker) 5 Mg-325 Mg Tab 1 TAB PO Q6H Y for PAIN, #16 TAB 0 Refills Prov: Sammie Shah 10/05/17 Cephalexin (Keflex) 500 Mg Capsule 500 MG PO Q6H for Infection for 10 Days, #40 CAP 0 Refills Prov: Sammie Shah 10/05/17 Sulfamethoxazole-Trimethoprim (Bactrim DS) 800-160 Mg Tab 1 TAB PO BID for Infection, #20 TAB 0 Refills Prov: Sammie Shah 10/05/17 Disposition: 01 DISCHARGE HOME Condition: Stable Sammie Shah Oct 05, 2017 15:40
[2017-10-05] MEDS ORDERED: ACETAMINOPHEN/HYDROcodone 325 MG/5 MG TAB PO ONE (15:45)
[2017-10-05] MEDS ORDERED: LIDOCAINE 1%/EPINEPHrine 1:100,000 SOLN 20 ML VIAL INFIL ONE (15:45)
[2017-10-05] MEDS ORDERED: CEPH-460 PO (16:28)
[2017-10-05] MEDS ORDERED: NORC5TAB PO (16:28)
[2017-10-05] MEDS ORDERED: BACT800T5 PO (16:28)
[2017-10-05] MEDS ORDERED: CEPHALEXIN MONOHYDRATE 500 MG CAP PO ONE (16:30)
[2017-10-05] MEDS ORDERED: SULFAMETHOXAZOLE-TRIMETHOPRIM DS 800-160 MG TAB PO ONE (16:30)
== END 2017-10-05 16:46 | disposition home or self-care (01) ==
LOC: NEPC 13:43
DX: L02.412 Cutaneous abscess of left axilla (principal); E11.9 Type 2 diabetes mellitus without complications; I10 Essential (primary) hypertension; Z72.0 Tobacco use; Z79.899 Other long term (current) drug therapy; Z79.4 Long term (current) use of insulin; Z88.8 Allergy status to other drugs, medicaments and biological substances
CPT/HCPCS: 10061; 86403; 87070; 87186; 87205

== ENCOUNTER 2017-10-07 13:31 | Emergency (ER) | payer MEDICARE ==
[~2017-10-07 13:31] MED LIST changes: +BACT800T5 PO; +CEPH-460 PO
[2017-10-07 13:33] VITALS: BP 144/72; PULSE 72; RESP 16; TEMP 98.4; O2SAT 96
--- NOTE | 2017-10-07 13:58 | PD ---
HPI Chief Complaint: Skin Problem Time Seen by Provider: 13:49 Travel History International Travel<30 days: No Contact w/Intl Traveler<30days: No Traveled to known affect area: No History of Present Illness HPI 42-year-old female here requesting packing removal to breast abscess. She reports the area was incised and drained 2 days ago. She denies fever or chills. She denies increasing pain. She denies any medical complaint. She reports she went to her primary doctor this morning but refused to have the packing removal without anesthetic first. She then came here for packing removal. While in the waiting room she was notified that she had home health care and wound care coming out to her house starting tomorrow to care for the abscess. PFSH Past Medical History Cardiovascular Problems: Yes (CHF; AICD; HTN) Cerebrovascular Accident: Yes Diabetes: Yes Patient Takes Glucophage: Yes Hypertension: Yes Implanted Vascular Access Dvce: Yes (icd) Respiratory: Yes (2 lt at hs) ?: Not : 2 Para: 2 Miscarriage: 0 : 0 Tubal Ligation: Yes Past Surgical History Cholecystectomy: Yes Hysterectomy: Yes (PARTIAL) Insulin Pump: Yes Social History Alcohol Use: No Tobacco Use: No Substance Use: No Allergies-Medications (Allergen,Severity, Reaction): Coded Allergies: insulin glargine (Verified Allergy, Severe, 10/05/17) lisinopril (Verified Allergy, Severe, 10/05/17) naproxen (Verified Allergy, Severe, 10/05/17) Reported Meds & Prescriptions Reported Meds & Active Scripts Active [place] (Hydrocodone-Acetaminophen) 5 Mg-325 Mg Tab 1 Tab PO Q6H PRN Keflex (Cephalexin) 500 Mg Capsule 500 Mg PO Q6H 10 Days Bactrim DS (Sulfamethoxazole-Trimethoprim) 800-160 Mg Tab 1 Tab PO BID [place] (Hydrocodone-Acetaminophen) 5 Mg-325 Mg Tab 1 Tab PO Q6H PRN Cipro (Ciprofloxacin HCl) 500 Mg Tab 500 Mg PO BID 14 Days Reported Zofran (Ondansetron HCl) 4 Mg Tab 4 Mg PO Q12HR PRN Losartan (Losartan Potassium) 25 Mg Tab 25 Mg PO DAILY Topiramate 25 Mg Tab 25 Mg PO DAILY Sertraline (Sertraline HCl) 100 Mg Tab 150 Mg PO DAILY Rosuvastatin (Rosuvastatin Calcium) 20 Mg Tab 20 Mg PO MWF Ranitidine (Ranitidine HCl) 150 Mg Tab 150 Mg PO BID Promethazine (Promethazine HCl) 12.5 Mg Tab 25 Mg PO Q4H PRN Nortriptyline (Nortriptyline HCl) 10 Mg Cap 10 Mg PO HS Metoprolol Tartrate 100 Mg Tab 100 Mg PO DAILY Metoprolol Tartrate 50 Mg Tab 50 Mg PO DAILY Invokana (Canagliflozin) 300 Mg Tab 300 Mg PO DAILY Take before 1st meal of day. Dexilant (Dexlansoprazole) 60 Mg Cap.dr.bp 60 Mg PO Fenofibrate 145 Mg Tab 145 Mg PO DAILY Colchicine 0.6 Mg Tab 0.6 Mg PO PRN Digoxin 0.125 Mg Tab 0.125 Mg PO DAILY Sucralfate 1 Gram Tab 1 Gm PO QID on empty stomach Allopurinol 300 Mg Tab 300 Mg PO DAILY Novolog Inj (Insulin Aspart) 1,000 Unit/10 Ml Vial 0 SQ DIRECTED Sliding Scale as directed. Review of Systems Except as stated in HPI: all other systems reviewed are Neg General / Constitutional: No: Fever Physical Exam Narrative GENERAL: Alert female. Well-appearing. SKIN: Warm and dry. HEAD: Normocephalic. EYES: No injection or drainage. NECK: Supple, trachea midline. Breast: Patient refused exam stating "my doctor already looked at it" Data Data Last Documented VS Vital Signs Date Time Temp Pulse Resp B/P (MAP) Pulse Ox O2 Delivery O2 Flow Rate FiO2 10/07/17 13:33 98.4 72 16 144/72 (96) 96 Room Air MDM Medical Decision Making Medical Screen Exam Complete: Yes Emergency Medical Condition: No Differential Diagnosis Abscess, cellulitis, wound infection Narrative Course A medical screening exam was performed: At the time of evaluation the presenting medical condition was determined not to be of an emergent nature. The patient was given the option of receiving additional care, but declined. Patient was given options for additional community resources from which to obtain care. The Patient Has Been advised to seek medical attention for their presenting complaint. The patient has been advised to return to the ER at any time if an emergent condition develops. Patient has wound care/home health coming out tomorrow to remove packing and care for the wound. She denies fever or chills. She denies increasing pain. She has no indication per history of spreading infection or worsening of condition. She refused the Breast exam after she was told he would not inject anesthetic into the breast to remove packing. Diagnosis Primary Impression: Encounter for medical screening examination Referrals: Primary Care Physician Disposition: 01 DISCHARGE HOME Condition: Stable Kiki Arellano Oct 07, 2017 13:58
== END 2017-10-07 13:58 | disposition left against medical advice (07) ==
LOC: NEPK 13:31
DX: Z48.01 Encounter for change or removal of surgical wound dressing (principal)
CPT/HCPCS: 99281

== ENCOUNTER 2018-01-10 23:11 | Inpatient (IN) | payer MEDICARE, OTHER ==
[~2018-01-10] VITALS: Ht 149.9 cm; Wt 79.5 kg
[2018-01-10 23:51] VITALS: BP 148/67; PULSE 92; RESP 18; TEMP 98.1; O2SAT 97
--- NOTE | 2018-01-11 00:21 | PD ---
HPI Chief Complaint: Psychiatric Symptoms Time Seen by Provider: 00:01 Travel History International Travel<30 days: No Contact w/Intl Traveler<30days: No Traveled to known affect area: No History of Present Illness HPI 43-year-old white female presents emergency department under [place] act by PD. Patient had called police and advising them since suicidal. She had contemplated shooting herself with her boyfriend's gun. She states that she is overwhelmed with social issues at home. She constantly fights with her significant other over his daughter. She states that she is tired of living and wants to . She has had a history of depression in the past. She also has multiple medical problems. She denies any toxic ingestions. She denies any recent alcohol use. No tobacco. No drugs. PFSH Past Medical History Narrative Medical Congestive heart failure, CVA, hypertension, chronic renal disease, diabetes, depression Cardiovascular Problems: Yes (CHF; AICD; HTN) Cerebrovascular Accident: Yes Diabetes: Yes Hypertension: Yes Implanted Vascular Access Dvce: Yes (icd) Respiratory: Yes (2 lt at hs) : 2 Para: 2 Miscarriage: 0 : 0 Tubal Ligation: Yes Past Surgical History Cholecystectomy: Yes Hysterectomy: Yes (PARTIAL) Insulin Pump: Yes Social History Alcohol Use: No Tobacco Use: No Substance Use: No Allergies-Medications (Allergen,Severity, Reaction): Coded Allergies: insulin glargine (Verified Allergy, Severe, 01/10/18) lisinopril (Verified Allergy, Severe, 01/10/18) naproxen (Verified Allergy, Severe, 01/10/18) Reported Meds & Prescriptions Reported Meds & Active Scripts Active [place] (Hydrocodone-Acetaminophen) 5 Mg-325 Mg Tab 1 Tab PO Q6H PRN Keflex (Cephalexin) 500 Mg Capsule 500 Mg PO Q6H 10 Days Bactrim DS (Sulfamethoxazole-Trimethoprim) 800-160 Mg Tab 1 Tab PO BID [place] (Hydrocodone-Acetaminophen) 5 Mg-325 Mg Tab 1 Tab PO Q6H PRN Cipro (Ciprofloxacin HCl) 500 Mg Tab 500 Mg PO BID 14 Days Reported Zofran (Ondansetron HCl) 4 Mg Tab 4 Mg PO Q12HR PRN Losartan (Losartan Potassium) 25 Mg Tab 25 Mg PO DAILY Topiramate 25 Mg Tab 25 Mg PO DAILY Sertraline (Sertraline HCl) 100 Mg Tab 150 Mg PO DAILY Rosuvastatin (Rosuvastatin Calcium) 20 Mg Tab 20 Mg PO MWF Ranitidine (Ranitidine HCl) 150 Mg Tab 150 Mg PO BID Promethazine (Promethazine HCl) 12.5 Mg Tab 25 Mg PO Q4H PRN Nortriptyline (Nortriptyline HCl) 10 Mg Cap 10 Mg PO HS Metoprolol Tartrate 100 Mg Tab 100 Mg PO DAILY Metoprolol Tartrate 50 Mg Tab 50 Mg PO DAILY Invokana (Canagliflozin) 300 Mg Tab 300 Mg PO DAILY Take before 1st meal of day. Dexilant (Dexlansoprazole) 60 Mg Cap.dr.bp 60 Mg PO Fenofibrate 145 Mg Tab 145 Mg PO DAILY Colchicine 0.6 Mg Tab 0.6 Mg PO PRN Digoxin 0.125 Mg Tab 0.125 Mg PO DAILY Sucralfate 1 Gram Tab 1 Gm PO QID on empty stomach Allopurinol 300 Mg Tab 300 Mg PO DAILY Novolog Inj (Insulin Aspart) 1,000 Unit/10 Ml Vial 0 SQ DIRECTED Sliding Scale as directed. Review of Systems Except as stated in HPI: all other systems reviewed are Neg Psychiatric: Positive: Depression, Suicidal Ideations, Mood Disorder, No: Anxiety, Disorder of Thought, Substance Abuse, Homicidal Ideation Physical Exam Narrative GENERAL: Well-nourished, well-developed patient. SKIN: Warm and dry. HEAD: Normocephalic and atraumatic. EYES: No scleral icterus. No injection or drainage. ENT: No nasal drainage noted. Mucous membranes pink. Airway patent. NECK: Supple, trachea midline. Moves head freely without obvious discomfort. CARDIOVASCULAR: Regular rate and rhythm without murmurs, gallops, or rubs. RESPIRATORY: Breath sounds equal bilaterally. No accessory muscle use. GASTROINTESTINAL: Abdomen soft, non-tender, nondistended. EXTREMITIES: No cyanosis or edema. BACK: Nontender without obvious deformity. No CVA tenderness. NEURO: Patient is alert and oriented. no sensorimotor deficits. Nonfocal. Normal speech. PSYCH: No delusions. No auditory or visual hallucinations. Data Data Last Documented VS Vital Signs Date Time Temp Pulse Resp B/P (MAP) Pulse Ox O2 Delivery O2 Flow Rate FiO2 01/10/18 23:51 98.1 92 18 148/67 (94) 97 Orders Orders Complete Blood Count With Diff (01/11/18 00:15) Comprehensive Metabolic Panel (01/11/18 00:15) Thyroid Stimulating Hormone (01/11/18 00:15) Urinalysis - C+S If Indicated (01/11/18 00:15) Electrocardiogram (01/11/18 00:15) Psych Screen (01/11/18 00:15) Drug Screen, Random Urine (01/11/18 00:15) Alcohol (Ethanol) (01/11/18:15) Salicylates (Aspirin) (01/11/18 00:15) Tylenol (Acetaminophen) (01/11/18 00:15) Chest, Single Ap (01/11/18 00:15) Ed Urine Pregnancytest Poc (01/11/18:15) Digoxin (01/11/18:17) MDM Medical Decision Making Medical Screen Exam Complete: Yes Emergency Medical Condition: Yes Medical Record Reviewed: Yes Differential Diagnosis MDM: High Differential diagnoses: Schizophrenia, schizoaffective disorder, bipolar, anxiety, depression, adjustment reaction, mood disorder NOS, ODD, depressive disorder NOS, dementia, dementia with agitation, psychosis NOS, substance induced mood disorder, DMDD, Asperger syndrome, infection,electrolyte abnormality, malingering. Narrative Course Mental health screening discussed with the patient. Psychiatric screen ordered. Diagnosis Primary Impression: Medical clearance for psychiatric admission Condition: Arturo Mercado Jan 11, 2018 00:21
[2018-01-11 03:22] LABS: BACTERIA, URINE RARE /hpf; BILIRUBIN, URINE NEG (NEG); BLOOD, URINE NEG (NEG); GLUCOSE,URINE 300 mg/dL (NEG); KETONE, URINE NEG (NEG); MUCUS URINE FEW /lpf (OCC); NITRITE,URINE NEG (NEG); SQUAMOUS EPITHELIAL CELL URINE 1 /hpf (0-5); URINE COLOR LIGHT-YELLOW (YELLW/STRAW); URINE LEUKOCYTE ESTERASE NEG (NEG)
--- NOTE | 2018-01-11 03:52 | RADRPT ---
EXAM DATE/TIME: 01/11/2018 04:17 [facility] COMPARISON: CHEST SINGLE AP, September 06, 2017, 11:47. INDICATIONS : Cough. MEDICAL HISTORY : Cardiovascular disease. SURGICAL HISTORY : Pacemaker. ENCOUNTER: Initial ACUITY: 1 day PAIN SCORE: 0/10 LOCATION: Bilateral chest FINDINGS: A single view of the chest demonstrates the lungs to be symmetrically aerated without evidence of mas s, infiltrate or effusion. The cardiomediastinal contours are unremarkable. Osseous structures are intact. The left subclavian transvenous pacer remains in place. CONCLUSION: No acute disease. There is no evidence of pneumonia. Quentin Paige MD on January 11, 2018 at 3:49 Board Certified Radiologist. This report was verified electronically.
[2018-01-11 04:27] LABS: AUTOMATED NEUTROPHIL # 5.9 TH/MM3 (1.8-7.7); BASOPHIL # 0.1 TH/MM3 (0-0.2); EOSINOPHIL # 0.1 TH/MM3 (0-0.4); EOSINOPHIL % 1.1 % (0.0-4.0); HEMATOCRIT 42.6 % (35.0-46.0); HEMOGLOBIN 14.3 GM/DL (11.6-15.3); LYMPH % 38.7 % (9.0-44.0); LYMPHOCYTE # 4.3 TH/MM3 (1.0-4.8); MEAN CELL VOLUME 90.1 FL (80.0-100.0); MEAN CORPUSCULAR HEMOGLOBIN 30.3 PG (27.0-34.0); MEAN CORPUSCULAR HGB CONC 33.7 % (32.0-36.0); MEAN PLATELET VOLUME 7.7 FL (7.0-11.0); MONO % 6.3 % (0.0-8.0); MONOCYTE # 0.7 TH/MM3 (0-0.9); NEUT % 52.9 % (16.0-70.0); PLATELET COUNT 165 TH/MM3 (150-450); RED BLOOD COUNT 4.73 MIL/MM3 (4.00-5.30); RED CELL DISTRIBUTION WIDTH 13.6 % (11.6-17.2); WHITE BLOOD COUNT 11.2 TH/MM3 (4.0-11.0)
[2018-01-11 04:45] LABS: ALBUMIN 4.1 GM/DL (3.4-5.0); AST (GOT) 36 U/L (15-37); BICARBONATE 24.4 MEQ/L (21.0-32.0); BLOOD UREA NITROGEN 23 MG/DL (7-18); CALCIUM 8.9 MG/DL (8.5-10.1); CHLORIDE 103 MEQ/L (98-107); CREATININE 0.96 MG/DL (0.50-1.00); GLOMERULAR FILTRATION RATE 63 ML/MIN (>89); GLUCOSE,RANDOM 172 MG/DL (74-106); SODIUM (NA) 139 MEQ/L (136-145)
[2018-01-11 04:58] LABS: ALKALINE PHOSPHATASE 91 U/L (45-117); ALT (GPT) 55 U/L (10-53); DIGOXIN 0.6 NG/ML (0.8-2.0); TOTAL BILIRUBIN ADULT 0.3 MG/DL (0.2-1.0)
[2018-01-11 04:59] LABS: ACETAMINOPHEN LESS THAN 2.0 MCG/ML (10.0-30.0)
[2018-01-11] MEDS ORDERED: FURO40TA PO (11:28)
[2018-01-11] MEDS ORDERED: ASPI-516 CHEW (11:28)
[2018-01-11] MEDS: INSULIN NovoLIN REGULAR SUPPLEMENTAL SCALE SQ SCH ×3 (12:00→21:40)
[2018-01-11 13:30] VITALS: BP 140/68; PULSE 78; RESP 20; TEMP 98.6; O2SAT 98
[2018-01-11] MEDS ORDERED: LORazepam 2 MG/ML VIAL IM PRN (15:45)
--- NOTE | 2018-01-11 15:48 | HHI.HP ---
Provisional Diagnosis Admission Date Jan 11, 2018 at 15:32 [place] I. Major depressive disorder, single episode, severe without psychotic features Certification of Person's Competence To Provide Express and Informed Consent I have personally examined Muriel Pinto , a person being served at [facility] on, Jan 11, 2018 15:38. Express and informed consent means consent voluntarily given in writing, by a competent person, after sufficient explanation and disclosure of the subject matter involved to enable the person to make a knowing and willful decision without any element of force, fraud, deceit, duress, or other form of constraint or coercion. This person is 18 years of age or older, is not now known to be incompetent to consent to treatment with a guardian advocate, and does not have a health care surrogate or proxy currently making medical treatment decisions. I have found this person to be one of the following: [] Competent to provide express and informed consent, as defined above, for voluntary admission to this facility and is competent to provide express and informed consent for treatment. He/she has the consistent capacity to make well reasoned, willful, and knowing decisions concerning his or her medical or mental health treatment. The person fully and consistently understands the purpose of the admission for examination/placement and is fully capable of personally exercising all rights assured [place]xxx] Incompetent to provide express and informed consent to voluntary admission , and this is incompetent to provide express and informed consent to treatment. The person must be transferred to involuntary status and a petition for a guardian advocate filed with the Circuit Court. [] Refusing to provide express and informed consent to voluntary admission but is competent to provide express and informed consent for treatment. The person must be discharged or transferred to involuntary status. Form shall be completed within 24 hours of a person's arrival at the receiving facility and filed in the clinical record of each person: 1. Admitted on a voluntary basis 2. Permitted to provide express and informed consent to his/her own treatment 3. Allowed to transfer from involuntary to voluntary status 4. Prior to permitting a person to consent to his or her own treatment after having been previously found incompetent to consent to treatment. History of Present Illness Capacity: Has Capacity HPI Patient is a 43-year-old woman, , currently engaged with [employer] and domiciled with him, his daughter and her son, unemployed on SSD, with a past psychiatric history of depression, anxiety, no previous psychiatric admissions, no previous suicide attempts of his behavior with a past medical history significant for CHF, CVA, HTN, CRD, A. fib, previous MO, DM, AICD was brought into the ED under Mayer act by police for suicidal ideation, contemplating the uterus self with boyfriend's gun in the context of feeling overwhelmed social issues fights with ho's daughter, feeling tired of living and wanted to which patient was admitted to the inpatient psychiatry unit for further evaluation and management. Patient was found sitting hospital bed noted to be tearful during interview dysphoric. Patient states that last night she had threatened to kill herself after an argument with her fiance over as his daughter, feeling stressed about son currently dealing with alcohol dependence with frequent relapses inpatient feeling that she needs to "fix of her body. Patient states she has been feeling overwhelmed to the psychosocial stressors and prior to her admission she had argued with her fianc which she became upset and broke some chairs in her home and was also higher with son who she states was not leaving her alone at which point she grabbed a gun in her hand and stated that she was going to shoot herself. Patient this time continues report feeling depressed along with continue suicide ideation and feeling overwhelmed. Patient this time denies any perceptual disturbances or delusions. Past psychiatric history: Previous diagnoses of depression, anxiety, no previous psychiatric admissions, suicide or self injury behavior. Patient has no outpatient mental health provider services but states that she is currently undergoing couples therapy for the past 2-3 months with her fianc. Substance use history: Patient reports having quit tobacco, no alcohol or drug use. Past medical history: CHF, CVA, HTN, CRD, A. fib, previous MO, DM, AICD Allergies: Naproxen, lisinopril, glargine Social history: , unemployed on SSD, domiciled with ho, finances daughter and her son. 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 No legal history. Review of Systems Except as stated in HPI: all other systems reviewed are Neg Past Psych History Violence risk - others (6 mos) Low Violence risk - self (6 mos) Elevated due to recent suicidal ideation Substance Abuse History Drugs/Alcohol past 12 months Patient reports having quit tobacco, no alcohol or drug use. Past Family Social History Coded Allergies: insulin glargine (Verified Allergy, Severe, 01/10/18) lisinopril (Verified Allergy, Severe, 01/10/18) naproxen (Verified Allergy, Severe, 01/10/18) Reported Medications Aspirin (Aspirin) 81 Mg Chew, 81 MG CHEW DAILY, TAB 0 Refills 01/11/18 Furosemide (Furosemide) 40 Mg Tab, 40 MG PO BID, #60 TAB 0 Refills 01/11/18 Ondansetron (Zofran) 4 Mg Tab, 4 MG PO Q12HR Y for NAUSEA OR VOMITING, TAB 0 Refills 09/06/17 Losartan (Losartan) 25 Mg Tab, 25 MG PO DAILY for Blood Pressure Management, # 30 TAB 0 Refills 09/06/17 Topiramate (Topiramate) 25 Mg Tab, 25 MG PO DAILY for Control Seizures, #60 TAB 0 Refills 09/06/17 Sertraline (Sertraline) 100 Mg Tab, 150 MG PO DAILY, #30 TAB 0 Refills 09/06/17 Rosuvastatin (Rosuvastatin) 20 Mg Tab, 20 MG PO MWF for Cholesterol Management, #30 TAB 0 Refills 09/06/17 Ranitidine (Ranitidine) 150 Mg Tab, 150 MG PO BID for Heartburn Management, #60 TAB 0 Refills 09/06/17 Promethazine (Promethazine) 12.5 Mg Tab, 25 MG PO Q4H Y for NAUSEA OR VOMITING, TAB 0 Refills 09/06/17 Nortriptyline (Nortriptyline) 10 Mg Cap, 10 MG PO HS for Depression Control, CAP 0 Refills 09/06/17 Metoprolol Tartrate (Metoprolol Tartrate) 100 Mg Tab, 100 MG PO DAILY, #30 TAB 0 Refills 09/06/17 Metoprolol Tartrate (Metoprolol Tartrate) 50 Mg Tab, 50 MG PO DAILY, #30 TAB 0 Refills 09/06/17 Dexlansoprazole (Dexilant) 60 Mg Tam., 60 MG PO 09/06/17 Fenofibrate (Fenofibrate) 145 Mg Tab, 145 MG PO DAILY, #30 TAB 0 Refills 09/06/17 Colchicine (Colchicine) 0.6 Mg Tab, 0.6 MG PO PRN for Gout, TAB 0 Refills 09/06/17 Digoxin (Digoxin) 0.125 Mg Tab, 0.125 MG PO DAILY for Regulate Heart Beat, #30 TAB 0 Refills 09/06/17 Sucralfate (Sucralfate) 1 Gram Tab, 1 GM PO QID for Duodenal ulcer, #120 TAB 0 Refills on empty stomach 09/06/17 Allopurinol (Allopurinol) 300 Mg Tab, 300 MG PO DAILY for Gout, #30 TAB 0 Refills 09/06/17 Insulin Aspart Inj (Novolog Inj) 1,000 Unit/10 Ml Vial, 0 SQ DIRECTED for Blood Sugar Management, #10 ML 0 Refills Sliding Scale as directed. 09/06/17 Discontinued Reported Medications Canagliflozin (Invokana) 300 Mg Tab, 300 MG PO DAILY for Blood Sugar Management , #30 TAB 0 Refills Take before 1st meal of day. 09/06/17 Discontinued Scripts Hydrocodone-Acetaminophen ([place]) 5 Mg-325 Mg Tab, 1 TAB PO Q6H Y for PAIN, #16 TAB 0 Refills Prov:Sammie Shah 10/05/17 Cephalexin (Keflex) 500 Mg Capsule, 500 MG PO Q6H for Infection for 10 Days, # 40 CAP 0 Refills Prov:Sammie Shah 10/05/17 Sulfamethoxazole-Trimethoprim (Bactrim DS) 800-160 Mg Tab, 1 TAB PO BID for Infection, #20 TAB 0 Refills Prov:Sammie Shah 10/05/17 Hydrocodone-Acetaminophen ([place]) 5 Mg-325 Mg Tab, 1 TAB PO Q6H Y for PAIN, #12 TAB 0 Refills Prov:Sammie Shah 09/06/17 Ciprofloxacin (Cipro) 500 Mg Tab, 500 MG PO BID for Infection for 14 Days, #28 TAB 0 Refills Prov:Sammie Shah 09/06/17 Current Medications Medications (Trade) Dose Ordered Sig/Angel Luis Route Start Time Stop Time Status Last Admin (NovoLIN R SUPPLEMENTAL SCALE) 1 ACHS SLIDING SCALE SQ 01/11/18 12:00 (Ativan) 1 mg Q6H PRN PO 01/11/18 15:45 UNV (Ativan Inj) 1 mg Q6H PRN IM 01/11/18 15:45 UNV (Benadryl) 50 mg HS PRN PO 01/11/18 15:45 UNV (Tylenol) 650 mg Q4H PRN PO 01/11/18 15:45 UNV (Milk Of Magnesia Liq) 30 ml DAILY PRN PO 01/11/18 15:45 UNV (Mag-Al Plus Susp Liq) 30 ml Q6H PRN PO 01/11/18 15:45 UNV Social History , unemployed on SSD, domiciled with fianc, finances daughter and her son. 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 No legal history. Patient's Strengths (min. 2) Verbal and communicative Physical Exam Patient not noted to be acute distress, no gross motor abnormalities, no signs of tremor or EPS, no psychomotor agitation or retardation Vital Signs Vital Signs Date Time Temp Pulse Resp B/P (MAP) Pulse Ox O2 Delivery O2 Flow Rate FiO2 01/11/18 13:30 98.6 78 20 140/68 (92) 98 Lab Results Labs reviewed Test 01/11/18 01:38 01/11/18 03:40 Urine Color LIGHT-YELLOW Urine Turbidity CLEAR Urine pH 5.0 Urine Specific [place] 1.011 Urine Protein NEG mg/dL Urine Glucose (UA) 300 mg/dL Urine Ketones NEG mg/dL Urine Occult Blood NEG Urine Nitrite NEG Urine Bilirubin NEG Urine Urobilinogen LESS THAN 2.0 MG/DL Urine Leukocyte Esterase NEG Urine WBC 1 /hpf Urine Squamous Epithelial Cells 1 /hpf Urine Bacteria RARE /hpf Urine Mucus FEW /lpf Microscopic Urinalysis Comment CULT NOT INDICATED Urine Opiates Screen NEG Urine Barbiturates Screen NEG Urine Amphetamines Screen NEG Urine Benzodiazepines Screen NEG Urine Cocaine Screen NEG Urine Cannabinoids Screen NEG White Blood Count 11.2 TH/MM3 Red Blood Count 4.73 MIL/MM3 Hemoglobin 14.3 GM/DL Hematocrit 42.6 % Mean Corpuscular Volume 90.1 FL Mean Corpuscular Hemoglobin 30.3 PG Mean Corpuscular Hemoglobin Concent 33.7 % Red Cell Distribution Width 13.6 % Platelet Count 165 TH/MM3 Mean Platelet Volume 7.7 FL Neutrophils (%) (Auto) 52.9 % Lymphocytes (%) (Auto) 38.7 % Monocytes (%) (Auto) 6.3 % Eosinophils (%) (Auto) 1.1 % Basophils (%) (Auto) 1.0 % Neutrophils # (Auto) 5.9 TH/MM3 Lymphocytes # (Auto) 4.3 TH/MM3 Monocytes # (Auto) 0.7 TH/MM3 Eosinophils # (Auto) 0.1 TH/MM3 Basophils # (Auto) 0.1 TH/MM3 CBC Comment DIFF FINAL Differential Comment Blood Urea Nitrogen 23 MG/DL Creatinine 0.96 MG/DL Random Glucose 172 MG/DL Total Protein 8.0 GM/DL Albumin 4.1 GM/DL Calcium Level 8.9 MG/DL Alkaline Phosphatase 91 U/L Aspartate Amino Transf (AST/SGOT) 36 U/L Alanine Aminotransferase (ALT/SGPT) 55 U/L Total Bilirubin 0.3 MG/DL Sodium Level 139 MEQ/L Potassium Level 3.6 MEQ/L Chloride Level 103 MEQ/L Carbon Dioxide Level 24.4 MEQ/L Anion Gap 12 MEQ/L Estimat Glomerular Filtration Rate 63 ML/MIN Thyroid Stimulating Hormone 3rd Gen 3.670 uIU/ML Digoxin Level 0.6 NG/ML Salicylates Level 4.0 MG/DL Acetaminophen Level LESS THAN 2.0 MCG/ML Ethyl Alcohol Level LESS THAN 3 MG/DL Mental Status Examination Appearance: Disheveled Consciousness: Alert Orientation: Person, Place, Date/Time Motor Activity: Normal gait Speech: Unremarkable Language: Adequate Fund of Knowledge: Inadequate Attention and Concentration: Adequate Memory: Unremarkable Mood: Sad Affect: Sad, Other (Tearful) Thought Process & Associations: Intact, Linear Thought Content: Appropriate Hallucination Type: None Delusion Type: None Suicidal Ideation: Yes Suicidal Plan: No Suicidal Intention: No Homicidal Ideation: No Homicidal Plan: No Homicidal Intention: No Insight: Fair Judgment: Impulsive Assessment & Plan Problem List: (1) Major depressive disorder, single episode, severe without psychotic features ICD Codes: F32.2 - Major depressive disorder, single episode, severe without psychotic features Assessment & Plan Estimated LOS: 3-5 days. Patient is a 43-year-old woman who carries a diagnosis of depression and anxiety, no previous psychiatric admissions, suicide attempt or self injurious behavior, brought in under Mayer act due to suicidal ideations and contemplated shooting herself with and scan context of psychosocial stressors. Patient will be admitted under involuntary basis for psychiatric stabilization, petition for involuntary hospitalization started , second opinion requested. Will monitor mood and behavior. Collateral formation pending from family. Hospitalist consult requested for management of chronic medical issues. Social work intervention for psychosocial assessment. Discharge planning in progress. Discharge Planning Patient return back to her residence when psychiatrically stable. Ayo Santiago MD Jan 11, 2018 15:48
[2018-01-11] MEDS ORDERED: LORazepam 1 MG TAB PO PRN (16:00)
[2018-01-11] MEDS ORDERED: diphenhydrAMINE HCL 50 MG CAP PO PRN (16:00)
[2018-01-11] MEDS ORDERED: MAGNESIUM HYDROXIDE SUSP 30 ML CUP PO PRN (16:00)
[2018-01-11] MEDS ORDERED: ALUMINUM/MAGNESIUM/SIMETH 30 ML CUP PO PRN (16:00)
[2018-01-11 17:53] VITALS: BP 145/68; PULSE 68; RESP 16; TEMP 98.6; O2SAT 98
[2018-01-11] MEDS: SUCRALFATE 1 GM TAB PO SCH ×2 (18:00→21:00)
[2018-01-11 18:48] VITALS: BP 162/80; PULSE 104; RESP 18; TEMP 98; O2SAT 97
[2018-01-11] MEDS: ACETAMINOPHEN 325 MG TAB PO PRN (19:09)
--- NOTE | 2018-01-11 19:41 | EKG ---
Date Performed: 01/11/2018 Time Performed: 04:11:34 PTAGE: 43 years EKG: Sinus rhythm WITH FIRST DEGREE AV BLOCK NONSPECIFIC T-WAVE ABNORMALITY Since the previous tracing, no significant change noted ABNORMAL ECG PREVIOUS TRACING : 09/06/2017 11.14 DOCTOR: Donnie Fernandez Interpretating Date/Time 01/11/2018 19:40:11
[2018-01-11] MEDS ORDERED: NORTRIPTYLINE HCL 10 MG CAP PO SCH (21:00)
[2018-01-11] MEDS: FAMOTIDINE 20 MG TAB PO SCH (21:40)
[2018-01-11] MEDS: FUROSEMIDE 40 MG TAB PO SCH (21:40)
[2018-01-12 05:51] VITALS: BP 139/80; PULSE 96; RESP 17; TEMP 98.2; O2SAT 98
[2018-01-12 06:43] LABS: BICARBONATE 22.5 MEQ/L (21.0-32.0); BLOOD UREA NITROGEN 21 MG/DL (7-18); CALCIUM 9.2 MG/DL (8.5-10.1); CHLORIDE 103 MEQ/L (98-107); CHOLESTEROL 159 MG/DL (120-200); CHOLESTEROL/ HDL RATIO 6.85 RATIO; CREATININE 0.73 MG/DL (0.50-1.00); GLOMERULAR FILTRATION RATE 87 ML/MIN (>89); GLUCOSE,RANDOM 225 MG/DL (74-106); HDL CHOLESTEROL 23.2 MG/DL (40.0-60.0); SODIUM (NA) 136 MEQ/L (136-145); TRIGLYCERIDES 555 MG/DL (42-150)
[2018-01-12] MEDS: INSULIN NovoLIN REGULAR SUPPLEMENTAL SCALE SQ SCH ×4 (08:00→20:42)
[2018-01-12] MEDS: SUCRALFATE 1 GM TAB PO SCH ×4 (09:00→21:00)
[2018-01-12] MEDS ORDERED: METOPROLOL TARTRATE 50 MG TAB PO SCH (09:00)
[2018-01-12] MEDS ORDERED: SERTRALINE HCL 100 MG TAB PO SCH (09:00)
[2018-01-12] MEDS: FAMOTIDINE 20 MG TAB PO SCH ×2 (09:04→20:39)
[2018-01-12] MEDS: DIGOXIN 0.125 MG TAB PO SCH (09:04)
[2018-01-12] MEDS: METOPROLOL TARTRATE 100 MG TAB PO SCH (09:04)
[2018-01-12] MEDS: FENOFIBRATE 145 MG TAB PO SCH (09:05)
[2018-01-12] MEDS: ALLOPURINOL 300 MG TAB PO SCH (09:05)
[2018-01-12] MEDS: ASPIRIN 81 MG CHEW TAB CHEW SCH (09:05)
[2018-01-12] MEDS: FUROSEMIDE 40 MG TAB PO SCH ×2 (09:05→20:39)
[2018-01-12] MEDS: LOSARTAN 25 MG TAB PO SCH (09:05)
[2018-01-12] MEDS: TOPIRAMATE 25 MG TAB PO SCH (09:05)
[2018-01-12] MEDS: ACETAMINOPHEN 325 MG TAB PO PRN ×2 (09:47→16:05)
--- NOTE | 2018-01-12 14:40 | PD.CONS ---
HPI Service [facility] Consult Requested By Dr. Santiago Reason for Consult medical management Primary Care Physician Unknown Diagnoses: History of Present Illness This is a 43-year-old female with extensive past medical history listed in assessment plan who was Mayer act secondary to suicidal ideations. Patient had no medical complaints. I reviewed extensively her past medical history. She stated that she is aware that her triglycerides are very high and she was put on a statin for that. Patient stated that she moved here about 1 year ago from [place] and she is still trying to establish with multiple specialists. Otherwise all other review of system reviewed and negative. Past Family Social History Allergies: Coded Allergies: insulin glargine (Verified Allergy, Severe, 01/10/18) lisinopril (Verified Allergy, Severe, 01/10/18) naproxen (Verified Allergy, Severe, 01/10/18) Past Medical History Coronary artery disease Ischemic cardiomyopathy with ejection fraction 35% History of CHF Atrial fibrillation History of CVA Hyperlipidemia Hypertriglyceridemia Type 2 diabetes insulin-dependent Major depressive disorder Past Surgical History Cholecystectomy 2 heart catheterization Tubal ligation ICD placement Reported Medications Reported Meds & Active Scripts Active Reported Aspirin 81 Mg Chew 81 Mg CHEW DAILY Furosemide 40 Mg Tab 40 Mg PO BID Zofran (Ondansetron HCl) 4 Mg Tab 4 Mg PO Q12HR PRN Losartan (Losartan Potassium) 25 Mg Tab 25 Mg PO DAILY Topiramate 25 Mg Tab 25 Mg PO DAILY Sertraline (Sertraline HCl) 100 Mg Tab 150 Mg PO DAILY Rosuvastatin (Rosuvastatin Calcium) 20 Mg Tab 20 Mg PO MWF Ranitidine (Ranitidine HCl) 150 Mg Tab 150 Mg PO BID Promethazine (Promethazine HCl) 12.5 Mg Tab 25 Mg PO Q4H PRN Nortriptyline (Nortriptyline HCl) 10 Mg Cap 10 Mg PO HS Metoprolol Tartrate 100 Mg Tab 100 Mg PO DAILY Metoprolol Tartrate 50 Mg Tab 50 Mg PO DAILY Dexilant (Dexlansoprazole) 60 Mg Cap.bp 60 Mg PO Fenofibrate 145 Mg Tab 145 Mg PO DAILY Colchicine 0.6 Mg Tab 0.6 Mg PO PRN Digoxin 0.125 Mg Tab 0.125 Mg PO DAILY Sucralfate 1 Gram Tab 1 Gm PO QID on empty stomach Allopurinol 300 Mg Tab 300 Mg PO DAILY Novolog Inj (Insulin Aspart) 1,000 Unit/10 Ml Vial 0 SQ DIRECTED Sliding Scale as directed. Active Ordered Medications Current Medications Insulin Human Regular (NovoLIN R SUPPLEMENTAL SCALE) 1 ACHS SLIDING SCALE SQ Last administered on 01/12/18at 11:19; Start 01/11/18 at 12:00 Lorazepam (Ativan) 1 mg Q6H PRN PO MODERATE TO SEVERE ANXIETY; Start 01/11/18 at 16:00 Lorazepam (Ativan Inj) 1 mg Q6H PRN IM MODERATE TO SEVERE ANXIETY; Start at 15:45 Diphenhydramine HCl (Benadryl) 50 mg HS PRN PO INSOMNIA; Start 01/11/18 at 16: 00 Acetaminophen (Tylenol) 650 mg Q4H PRN PO Pain 1-5 or Temp >101F Last administered on 01/12/18at 09:47; Start 01/11/18 at 16:00 Magnesium Hydroxide (Milk Of Magnesia Liq) 30 ml DAILY PRN PO CONSTIPATION; Start 01/11/18 at 16:00 Al Hydrox/Mg Hydrox/Simethicone (Mag-Al Plus Susp Liq) 30 ml Q6H PRN PO DYSPEPSIA; Start 01/11/18 at 16:00 Allopurinol (Zyloprim) 300 mg DAILY PO Last administered on 01/12/18at 09:05; Start 01/12/18 at 09:00 Aspirin (Aspirin Chew) 81 mg DAILY CHEW Last administered on 01/12/18at 09:05; Start 01/12/18 at 09:00 Digoxin (Lanoxin) 0.125 mg DAILY PO Last administered on 01/12/18at 09:04; Start 01/12/18 at 09:00 Fenofibrate (Tricor) 145 mg DAILY PO Last administered on 01/12/18at 09:05; Start 01/12/18 at 09:00 Furosemide (Lasix) 40 mg BID PO Last administered on 01/12/18at 09:05; Start at 21:00 Losartan Potassium (Cozaar) 25 mg DAILY PO Last administered on 01/12/18at 09:05 ; Start 01/12/18 at 09:00 Metoprolol Tartrate (Lopressor) 50 mg DAILY PO ; Start 01/12/18 at 09:00; Stop 01/12/18 at 09:00; Status DC Metoprolol Tartrate (Lopressor) 100 mg DAILY PO Last administered on 01/12/18at 09:04; Start 01/12/18 at 09:00 Nortriptyline HCl (Pamelor) 10 mg HS PO ; Start 01/11/18 at 21:00 Sertraline HCl (Zoloft) 150 mg DAILY PO Last administered on 01/12/18at 09:05; Start 01/12/18 at 09:00 Sucralfate (Carafate) 1 gm QID PO ; Start 01/11/18 at 18:00 Topiramate (Topamax) 25 mg DAILY PO Last administered on 01/12/18at 09:05; Start 01/12/18 at 09:00 Famotidine (Pepcid) 20 mg BID PO Last administered on 01/12/18at 09:04; Start at 21:00 Atorvastatin Calcium (Lipitor) 40 mg MoWeFr PO ; Start 01/12/18 at 16:00 Family History Mother had history of heart disease. Father had a history of lung cancer. Social History Patient was a former smoker stopped 2 years ago. Prior she smoked 1-1/2-2 packs per day. She drinks socially about 2 drinks a year. Denies any illicit drug use. Physical Exam Vital Signs Vital Signs Date Time Temp Pulse Resp B/P (MAP) Pulse Ox O2 Delivery O2 Flow Rate FiO2 01/12/18 05:51 98.2 96 17 139/80 (99) 98 01/11/18 18:48 98.0 104 18 162/80 (107) 97 01/11/18 17:58 Automatic Cuff 01/11/18 17:53 98.6 68 16 145/68 (93) 98 Physical Exam GENERAL: This is a well-nourished, well-developed patient, in no apparent distress. SKIN: No rashes, ecchymoses or lesions. Cool and dry. HEAD: Atraumatic. Normocephalic. No temporal or scalp tenderness. EYES: Pupils equal round and reactive. Extraocular motions intact. No scleral icterus. No injection or drainage. ENT: Nose without bleeding, purulent drainage or septal hematoma. Throat without erythema, tonsillar hypertrophy or exudate. Uvula midline. Airway patent. NECK: Trachea midline. No JVD or lymphadenopathy. Supple, nontender, no meningeal signs. CARDIOVASCULAR: Regular rate and rhythm without murmurs, gallops, or rubs. RESPIRATORY: Clear to auscultation. Breath sounds equal bilaterally. No wheezes , rales, or rhonchi. GASTROINTESTINAL: Abdomen soft, non-tender, nondistended. No hepato-splenomegaly , or palpable masses. No guarding. MUSCULOSKELETAL: Extremities without clubbing, cyanosis, or edema. No joint tenderness, effusion, or edema noted. No calf tenderness. Negative Homans sign bilaterally. NEUROLOGICAL: Awake and alert. Cranial nerves II through XII intact. Motor and sensory grossly within normal limits. Five out of 5 muscle strength in all muscle groups. Normal speech. Laboratory Laboratory Tests Test 01/12/18 05:30 Blood Urea Nitrogen 21 Creatinine 0.73 Random Glucose 225 Calcium Level 9.2 Sodium Level 136 Potassium Level 3.9 Chloride Level 103 Carbon Dioxide Level 22.5 Anion Gap 11 Estimat Glomerular Filtration Rate 87 Triglycerides Level 555 Cholesterol Level 159 LDL Cholesterol HDL Cholesterol 23.2 Cholesterol/HDL Ratio 6.85 Thyroid Stimulating Hormone 3rd Gen 2.870 Result Diagram: 01/11/18 0340 01/12/18 0530 Imaging Current Medications Insulin Human Regular (NovoLIN R SUPPLEMENTAL SCALE) 1 ACHS SLIDING SCALE SQ Last administered on 01/12/18at 11:19; Start 01/11/18 at 12:00 Lorazepam (Ativan) 1 mg Q6H PRN PO MODERATE TO SEVERE ANXIETY; Start 01/11/18 at 16:00 Lorazepam (Ativan Inj) 1 mg Q6H PRN IM MODERATE TO SEVERE ANXIETY; Start at 15:45 Diphenhydramine HCl (Benadryl) 50 mg HS PRN PO INSOMNIA; Start 01/11/18 at 16: 00 Acetaminophen (Tylenol) 650 mg Q4H PRN PO Pain 1-5 or Temp >101F Last administered on 01/12/18at 09:47; Start 01/11/18 at 16:00 Magnesium Hydroxide (Milk Of Magnesia Liq) 30 ml DAILY PRN PO CONSTIPATION; Start 01/11/18 at 16:00 Al Hydrox/Mg Hydrox/Simethicone (Mag-Al Plus Susp Liq) 30 ml Q6H PRN PO DYSPEPSIA; Start 01/11/18 at 16:00 Allopurinol (Zyloprim) 300 mg DAILY PO Last administered on 01/12/18 09:05; Start 01/12/18 at 09:00 Aspirin (Aspirin Chew) 81 mg DAILY CHEW Last administered on 01/12/18at 09:05; Start 01/12/18 at 09:00 Digoxin (Lanoxin) 0.125 mg DAILY PO Last administered on 01/12/18at 09:04; Start 01/12/18 at 09:00 Fenofibrate (Tricor) 145 mg DAILY PO Last administered on 01/12/18at 09:05; Start 01/12/18 at 09:00 Furosemide (Lasix) 40 mg BID PO Last administered on 01/12/18 09:05; Start at 21:00 Losartan Potassium (Cozaar) 25 mg DAILY PO Last administered on 01/12/18 09:05 ; Start 01/12/18 at 09:00 Metoprolol Tartrate (Lopressor) 50 mg DAILY PO ; Start 01/12/18 at 09:00; Stop 01/12/18 at 09:00; Status DC Metoprolol Tartrate (Lopressor) 100 mg DAILY PO Last administered on 01/12/18at 09:04; Start 01/12/18 at 09:00 Nortriptyline HCl (Pamelor) 10 mg HS PO ; Start 01/11/18 at 21:00 Sertraline HCl (Zoloft) 150 mg DAILY PO Last administered on 01/12/18at 09:05; Start 01/12/18 at 09:00 Sucralfate (Carafate) 1 gm QID PO ; Start 01/11/18 at 18:00 Topiramate (Topamax) 25 mg DAILY PO Last administered on 01/12/18at 09:05; Start 01/12/18 at 09:00 Famotidine (Pepcid) 20 mg BID PO Last administered on 01/12/18 09:04; Start at 21:00 Atorvastatin Calcium (Lipitor) 40 mg MoWeFr PO ; Start 01/12/18 at 16:00 Assessment and Plan Assessment and Plan This is a 43-year-old female4 who presented with suicidal ideations Mayer act secondary to suicidal ideation/major depressive disorder -Patient admitted to inpatient psychiatry. Management per psychiatrist team. Coronary artery disease/ischemic cardiomyopathy status post ICD with ejection fraction 35%/CHF/Atrial fibrillation/History of CVA/PCOS/Hyperlipidemia triglyceridemia -Continue home medication. Review labs. Will order digoxin level. -Patient has a history of atrial fibrillation based her multiple medical conditions including coronary disease and diabetes she would probably benefit from anticoagulation. Unsure of her history why she is not on anticoagulation. At the moment she is not the greatest historian due to her psychiatric issue. Currently she is on aspirin. Continue with aspirin. 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 Patient can follow-up with her teacher of the handicapped in regards to this. Type 2 diabetes insulin-dependent -Patient stated that she is on NovoLog R with total of 200 units a day. -At the moment patient is on medium insulin sliding scale. Her blood sugars are running in the 200s. We will add Levemir 10 units twice daily. Continue with insulin sliding scale. Will adjust medication based on blood sugar trends. DVT prophylaxis -Encourage ambulation. Discussed Condition With patient Carol Ann Resendiz MD Jan 12, 2018 14:40
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
[2018-01-12] MEDS ORDERED: ATORVASTATIN 40 MG TAB PO SCH (16:00)
[2018-01-12 18:17] VITALS: BP 111/65; PULSE 93; RESP 17; TEMP 98.6; O2SAT 93
[2018-01-12] MEDS: INSULIN DETEMIR 100 UNITS/ML VIAL SQ SCH (20:42)
[2018-01-12] MEDS ORDERED: NORTRIPTYLINE HCL 25 MG CAP PO SCH (21:00)
[2018-01-13] MEDS: ACETAMINOPHEN 325 MG TAB PO PRN (05:00)
[2018-01-13 05:07] VITALS: BP 119/69; PULSE 84; RESP 16; TEMP 97.6; O2SAT 97
[2018-01-13 05:42] VITALS: BP 119/69; PULSE 84; RESP 16; TEMP 97.6; O2SAT 97
[2018-01-13] MEDS: INSULIN NovoLIN REGULAR SUPPLEMENTAL SCALE SQ SCH ×2 (07:37→11:29)
[2018-01-13] MEDS ORDERED: SERTRALINE HCL 100 MG TAB PO SCH (09:00)
[2018-01-13] MEDS: SUCRALFATE 1 GM TAB PO SCH ×2 (09:00→12:23)
[2018-01-13] MEDS: ALLOPURINOL 300 MG TAB PO SCH (09:00)
[2018-01-13] MEDS: INSULIN DETEMIR 100 UNITS/ML VIAL SQ SCH (09:00)
[2018-01-13] MEDS: LOSARTAN 25 MG TAB PO SCH (09:01)
[2018-01-13] MEDS: FUROSEMIDE 40 MG TAB PO SCH (09:01)
[2018-01-13] MEDS: FAMOTIDINE 20 MG TAB PO SCH (09:01)
[2018-01-13] MEDS: FENOFIBRATE 145 MG TAB PO SCH (09:01)
[2018-01-13] MEDS: ASPIRIN 81 MG CHEW TAB CHEW SCH (09:01)
[2018-01-13] MEDS: DIGOXIN 0.125 MG TAB PO SCH (09:01)
[2018-01-13] MEDS: TOPIRAMATE 25 MG TAB PO SCH (09:01)
[2018-01-13] MEDS: METOPROLOL TARTRATE 100 MG TAB PO SCH (09:01)
[2018-01-13 09:09] VITALS: BP 130/71; PULSE 102; RESP 18; TEMP 98.2; O2SAT 99
--- NOTE | 2018-01-13 09:14 | PD.TTN ---
Patient Problems 1. Discharge planning 2. Medication compliance 3. Knowledge deficit 4. Lack of coping skills Progress Toward Goals Provider Present: Dr. Marguerite Carias Provider Input: 01/13/18 - Dr. Carias reported that this is a new patient and he is hoping for this to be a fairly short stay. Psychiatric Counselors Present: ROCHELLE Gomez Psych Therapist Input: 01/13/18 - Counselor will complete patient's biopsychosocial assessment today. Group Spec/RT/OT/TREJO Present: NEIL Abdalla Group Spec/RT/OT/TREOJ Input: 01/13/18 - This is a new patient. Discharge Plan SMA 01/13/18 - Patient will return home when stable. Documentation Scribe: ROCHELLE Gomez Date Resolved: Jan 13, 2018 Holly Dunn Jan 13, 2018 09:14
[2018-01-13] MEDS ORDERED: NORT25CA PO (12:56)
[2018-01-13] MEDS ORDERED: ZOLO100T PO (12:56)
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
[2018-01-13] MEDS ORDERED: INSU1INJ18 SQ (14:52)
--- NOTE | 2018-01-13 14:57 | HHI.PR ---
Subjective Remarks Follow up visit IDDM, CAD. patient seen and examined today. Reports her sugar is still up and down. reports allergy to Levemir and not Glargine or Lantus. States it gives her cough, rash. States she will see freelance interpreter/translator in [place] next week. States she checks her BG daily several times and covers herself with NovoLog R by "guesstimation", "like if I have sugars greater than 300, I will give myself 50units." Denies sliding scale use. Requesting to go home and states she will f/u with PCP and endocrinology as advised by her cardiology. Denies acute issues or complaints. Denies SI/HI. Objective Vitals Vital Signs Date Time Temp Pulse Resp B/P (MAP) Pulse Ox O2 Delivery O2 Flow Rate FiO2 01/13/18 09:09 98.2 102 18 130/71 (90) 99 01/13/18 05:07 97.6 84 16 119/69 (86) 97 01/12/18 18:17 98.6 93 17 111/65 (80) 93 I/O 01/12/18 01/12/18 01/12/18 01/13/18 01/13/18 01/13/18 07:00 15:00 23:00 07:00 15:00 23:00 Intake Total 240 ml Balance 240 ml Intake Oral 240 ml Result Diagram: 01/11/18 0340 01/12/18 0530 Imaging Last Impressions Chest X-Ray 01/11/18 0015 Signed Impressions: Service Date/Time: Thursday, January 11, 2018 04:17 - CONCLUSION: No acute disease. There is no evidence of pneumonia. Quentin Paige MD Objective Remarks GENERAL: This is a well-nourished, well-developed patient, in no apparent distress. SKIN: Warm and dry. HEENT: Normocephalic. Pupils equal round and reactive. Nose without bleeding. Airway patent. NECK: Trachea midline. No JVD. Supple. CARDIOVASCULAR: Regular rate and rhythm without murmurs, gallops, or rubs. RESPIRATORY: Clear to auscultation. Breath sounds equal bilaterally. No wheezes , rales, or rhonchi. GASTROINTESTINAL: Abdomen soft, non-tender, nondistended. Bowel Sounds normoactive x4. MUSCULOSKELETAL: Extremities without clubbing, cyanosis, or edema. NEUROLOGICAL: Awake and alert. Oriented to time, place, person. No focal neuro deficit. Moves all extremities. Normal speech. A/P Assessment and Plan This is a 43-year-old female4 who presented with suicidal ideations Mayer act secondary to suicidal ideation/major depressive disorder -Patient admitted to inpatient psychiatry. Management per psychiatrist team. -Denies SI/HI Coronary artery disease/ischemic cardiomyopathy status post ICD with ejection fraction 35%/CHF/Atrial fibrillation/History of CVA/PCOS/Hyperlipidemia triglyceridemia -Continue home medication. -Patient has a history of atrial fibrillation based her multiple medical conditions including coronary disease and diabetes she would probably benefit from anticoagulation. Unsure of her history why she is not on anticoagulation. -Patient is a poor historian, states she follows a conveyor system dispatcher but unable to expand on her medical condition. -Follow-up with conveyor system dispatcher when discharged. Type 2 diabetes insulin-dependent -Patient stated that she is on NovoLog R and covers herself by "guesstimation." -States she is allergic to Levemir and not Lantus/ Glargine. Discuss extensively need for diabetes management. She needs to have basal insulin. We will start her on Lantus instead 10 units twice daily. She can follow-up with an freelance interpreter/translator she was stating that she will follow in [place]. She needs to follow-up with her PCP to discuss further management as self injecting NovoLog R based on previous work is inappropriate for her, discussed risks including not limited to . DVT prophylaxis -Encourage ambulation. Eileen Tejada Jan 13, 2018 14:57
--- NOTE | 2018-01-13 15:43 | EKG ---
Date Performed: 01/12/2018 Time Performed: 13:30:07 PTAGE: 43 years EKG: Sinus rhythm WITH FIRST DEGREE AV BLOCK MODERATE INTRAVENTRICULAR CONDUCTION DELAY ABNORMAL ECG Since the PREVIOUS TRACING , no significant change noted PREVIOUS TRACIN01/11/2018 04.11 DOCTOR: Omar Farmer Interpretating Date/Time 01/13/2018 15:40:22
[2018-01-14 21:55] LABS: HEMOGLOBIN A1C 8.8 % (4.3-6.0)
== END 2018-01-13 16:00 | disposition home or self-care (01) | DRG 885 ==
LOC: NEPD 23:11 → NEDH 01-11 15:32 → H260 01-11 18:10
PROVIDERS: ADMIT Psychiatry & Neurology Psychiatry; ATTEND Psychiatry & Neurology Psychiatry
DX: F32.2 Major depressive disorder, single episode, severe without psychotic features (principal); I13.0 Hypertensive heart and chronic kidney disease with heart failure and stage 1 through stage 4 chronic kidney disease, or unspecified chronic kidney disease; E11.22 Type 2 diabetes mellitus with diabetic chronic kidney disease; I50.9 Heart failure, unspecified; R45.851 Suicidal ideations; N18.9 Chronic kidney disease, unspecified; I25.2 Old myocardial infarction; E28.2 Polycystic ovarian syndrome; I25.10 Atherosclerotic heart disease of native coronary artery without angina pectoris; I25.5 Ischemic cardiomyopathy; I48.91 Unspecified atrial fibrillation; E78.5 Hyperlipidemia, unspecified; E78.1 Pure hyperglyceridemia; F41.9 Anxiety disorder, unspecified; Z23 Encounter for immunization; Z62.810 Personal history of physical and sexual abuse in childhood; Z79.4 Long term (current) use of insulin; Z86.73 Personal history of transient ischemic attack (TIA), and cerebral infarction without residual deficits; Z87.891 Personal history of nicotine dependence; Z95.810 Presence of automatic (implantable) cardiac defibrillator
CPT/HCPCS: 71045; 80048; 80053; 80061; 80162; 80307; 81001; 82948; 83036; 84443; 85025; 93005

== ENCOUNTER 2018-02-24 11:33 | Emergency (ER) | payer MEDICARE, OTHER | END 2018-02-24 12:49 | disposition home or self-care (01) | LOC: NEPK 11:33 | DX: L02.31 Cutaneous abscess of buttock (principal); E78.00 Pure hypercholesterolemia, unspecified; E11.9 Type 2 diabetes mellitus without complications; I11.0 Hypertensive heart disease with heart failure; I50.9 Heart failure, unspecified; Z72.0 Tobacco use; Z79.4 Long term (current) use of insulin | CPT/HCPCS: 10060; 99282-25 ==